=== PATIENT | male | born 1970 | race African-American/Black ===

== ENCOUNTER 2018-04-15 18:58 | Emergency (ER) | payer SELFPAY ==
[~2018-04-15] VITALS: Ht 185.4 cm; Wt 123.0 kg
[2018-04-16 00:43] VITALS: BP 142/89
== END 2018-04-16 00:51 | disposition home or self-care (01) ==
LOC: ER 23:43
DX: T16.2XXA Foreign body in left ear, initial encounter (principal); X58.XXXA Exposure to other specified factors, initial encounter; Y93.89 Activity, other specified; Y92.89 Other specified places as the place of occurrence of the external cause; Y99.8 Other external cause status
CPT/HCPCS: 69200; 99284

== ENCOUNTER 2020-09-17 14:04 | Inpatient (IN) | payer SELFPAY ==
[~2020-09-17] VITALS: Ht 182.9 cm; Wt 166.9 kg
[2020-09-17] MEDS ORDERED: ASPIRIN 325MG EC TABLET PO ONE (14:45)
[2020-09-17] MEDS ORDERED: HYDROCODONE/ACETAMINOPHEN 5/325MG TABLET PO ONE (14:45)
[2020-09-17] MEDS ORDERED: FUROSEMIDE 40MG/4ML VIAL IV ONE (14:45)
[2020-09-17 15:13] LABS: CHLORIDE 99 mEq/L (98-107)
[2020-09-17 15:16] LABS: BASOPHILS % 0.8 % (0.0-2.0); HEMATOCRIT. 44.6 % (42.0-52.0); HEMOGLOBIN. 14.7 g/dL (14.0-18.0); LYMPHOCYTES % 13.3 % (20.0-50.0); MEAN CORPUSCULAR VOLUME 93.7 fL (80.0-94.0); MEAN PLATELET VOLUME 11.1 fl (7.4-10.4); MONOCYTES % 8.5 % (2.0-8.0); NEUTROPHILS % 76.4 % (40.0-76.0); PLATELET 161 x1000/uL (130-400); RED BLOOD CELL COUNT 4.76 mill/uL (4.7-6.1); RED CELL DISTRIBUTION WIDTH 14.9 % (11.6-14.6)
[2020-09-17 15:18] LABS: D-DIMER 1.71 mg/L FEU (<0.50); INR 1.2; PARTIAL THROMBOPLASTIN TIME 26.2 sec (23.4-31.0); PROTHROMBIN TIME 12.6 sec (9.6-11.0)
[2020-09-17] MEDS ORDERED: INSULIN REGULAR (HUMULIN R) 300UNITS/3ML VIAL IV ONE ×2 (16:30→18:30)
[2020-09-17 17:07] LABS: CLARITY URINE CLEAR (CLEAR); COLOR URINE YELLOW (YELLOW); KETONES URINE NEGATIVE (NEGATIVE); LEUKOCYTE ESTERASE URINE NEGATIVE (NEGATIVE); NITRITE URINE NEGATIVE (NEGATIVE); OCCULT BLOOD URINE NEGATIVE (NEGATIVE); PROTEIN URINE NEGATIVE (NEGATIVE); SPECIFIC GRAVITY URINE 1.018 (1.005-1.030); UROBILINOGEN URINE 0.2 E.U./dL (0.2-1.0)
[2020-09-17 17:19] LABS: *AMPHETAMINES SCREEN URINE NEGATIVE (NEGATIVE); *BARBITURATES SCREEN URINE NEGATIVE (NEGATIVE); *COCAINE SCREEN URINE NEGATIVE (NEGATIVE); METHADONE URINE SCREEN NEGATIVE (NEGATIVE); OPIATES URINE SCREEN NEGATIVE (NEGATIVE)
[2020-09-17 17:20] LABS: *BENZODIAZEPINES SCREEN URINE NEGATIVE (NEGATIVE); PHENCYCLIDINE URINE SCREEN NEGATIVE (NEGATIVE)
[2020-09-17 17:22] LABS: CANNABINOID URINE SCREEN NEGATIVE (NEGATIVE)
[2020-09-17] MEDS ORDERED: DOCUSATE SODIUM 100MG CAPSULE PO PRN (19:15)
[2020-09-17] MEDS ORDERED: DEXTROSE 50% WATER 50ML SYRINGE IV PRN (19:15)
[2020-09-17] MEDS ORDERED: ONDANSETRON HCL 4MG/2ML INJ IV PRN (19:15)
[2020-09-17] MEDS ORDERED: GUAIFENESIN 200MG/10ML SUGAR FREE UDC PO PRN (19:15)
[2020-09-17] MEDS ORDERED: MAGNESIUM/ALUMINUM HYDROXIDE/SIMETHICONE 30ML UDC PO PRN (19:15)
[2020-09-17] MEDS ORDERED: TRAMADOL 50MG TABLET PO PRN (19:15)
[2020-09-17] MEDS ORDERED: IPRATROPIUM/ALBUTEROL 0.5-3(2.5)MG/3ML NEB NEB PRN (19:15)
[2020-09-17] MEDS ORDERED: ACETAMINOPHEN 325MG TABLET PO PRN ×2 (19:15)
[2020-09-17] MEDS ORDERED: NITROGLYCERIN 0.4MG TABLET SL SL PRN (19:15)
[2020-09-17] MEDS ORDERED: CLONIDINE 0.1MG TABLET PO PRN (19:15)
[2020-09-17] MEDS ORDERED: KETOROLAC 15MG/ML VIAL IV PRN (19:15)
[2020-09-17 19:58] LABS: ETHANOL BLOOD < 10 mg/dL
[2020-09-17 19:59] LABS: TOTAL IRON BINDING CAPACITY 291 ug/dL (250-450)
[2020-09-17 20:39] LABS: VITAMIN B12 SERUM 1618 pg/mL (211-911)
[2020-09-17 20:43] LABS: FOLIC ACID (FOLATE) SERUM > 20.00 ng/mL (>5.38)
[2020-09-17] MEDS ORDERED: ZOLPIDEM TARTRATE 5MG TABLET PO PRN (21:00)
[2020-09-17] MEDS: FAMOTIDINE 20MG TABLET PO SCH (21:16)
[2020-09-17] MEDS: FUROSEMIDE 40MG/4ML VIAL IVP SCH (21:16)
[2020-09-17] MEDS: SPIRONOLACTONE 25MG TABLET PO SCH (21:17)
[2020-09-17] MEDS: ASCORBIC ACID 500 MG TABLET PO SCH (21:17)
[2020-09-17] MEDS: INSULIN LISPRO 100 UNITS/ML SUBCUT SCH (21:21)
[2020-09-17] MEDS: ENOXAPARIN 30MG/0.3ML SYR SUBCUT SCH (21:32)
[2020-09-17] MEDS: BLOOD SUGAR DIAGNOSTIC STRIP TEST SCH (21:37)
[2020-09-17] MEDS ORDERED: INSULIN GLARGINE UD 100 UNITS/ML SYR SUBCUT SCH (22:00)
[2020-09-17 22:45] VITALS: BP 137/95
[2020-09-17 23:00] VITALS: BP 137/95
[2020-09-17] MEDS: METHOCARBAMOL 750MG TABLET PO SCH (23:41)
[2020-09-18] VITALS (12 sets, daily range): BP systolic 110–148; BP diastolic 50–99
[2020-09-18] MEDS: CARVEDILOL 3.125 MG TABLET PO SCH ×2 (05:46→17:44)
[2020-09-18] MEDS: METHOCARBAMOL 750MG TABLET PO SCH ×3 (05:46→22:00)
[2020-09-18] MEDS: INSULIN LISPRO 100 UNITS/ML SUBCUT SCH ×7 (06:03→21:00)
[2020-09-18] MEDS: BLOOD SUGAR DIAGNOSTIC STRIP TEST SCH ×4 (06:08→21:00)
[2020-09-18 06:30] LABS: BASOPHILS % 0.8 % (0.0-2.0); EOSINOPHILS % 3.2 % (0.0-5.0); HEMATOCRIT. 41.9 % (42.0-52.0); HEMOGLOBIN. 14.2 g/dL (14.0-18.0); LYMPHOCYTES % 21.1 % (20.0-50.0); MEAN CORPUSCULAR HEMOGLOBIN 30.9 pg (28.0-32.0); MEAN CORPUSCULAR VOLUME 91.5 fL (80.0-94.0); MEAN PLATELET VOLUME 10.2 fl (7.4-10.4); NEUTROPHILS % 65.9 % (40.0-76.0); PLATELET 147 x1000/uL (130-400); RED BLOOD CELL COUNT 4.59 mill/uL (4.7-6.1); RED CELL DISTRIBUTION WIDTH 14.6 % (11.6-14.6)
[2020-09-18 06:45] LABS: CHLORIDE 104 mEq/L (98-107)
[2020-09-18 06:53] LABS: PHOSPHORUS 3.9 mg/dL (2.5-4.9)
[2020-09-18 06:56] LABS: CREATINE KINASE 297 IU/L (39-308)
[2020-09-18 06:58] LABS: CREATINE KINASE MB FRACTION 4.6 ng/mL (0.5-3.6)
[2020-09-18] MEDS: ASPIRIN 325MG EC TABLET PO SCH (09:01)
[2020-09-18] MEDS: FUROSEMIDE 40MG/4ML VIAL IVP SCH ×2 (09:01→22:00)
[2020-09-18] MEDS: CHOLECALCIFEROL (D3) 1000 UNIT TABLET PO SCH (09:01)
[2020-09-18] MEDS: ASCORBIC ACID 500 MG TABLET PO SCH ×2 (09:02→22:00)
[2020-09-18] MEDS: FAMOTIDINE 20MG TABLET PO SCH ×2 (09:02→22:00)
[2020-09-18] MEDS: SPIRONOLACTONE 25MG TABLET PO SCH ×2 (09:02→22:02)
[2020-09-18] MEDS: ENOXAPARIN 30MG/0.3ML SYR SUBCUT SCH (09:02)
[2020-09-18] MEDS: INSULIN GLARGINE UD 100 UNITS/ML SYR SUBCUT SCH (22:00)
[2020-09-18] MEDS: ENOXAPARIN 40MG/0.4ML SYR SUBCUT SCH (22:03)
[2020-09-19] VITALS (12 sets, daily range): BP systolic 107–148; BP diastolic 48–100
[2020-09-19] MEDS: INSULIN LISPRO 100 UNITS/ML SUBCUT SCH ×7 (06:41→21:11)
[2020-09-19] MEDS: METHOCARBAMOL 750MG TABLET PO SCH ×3 (06:48→21:14)
[2020-09-19] MEDS: BLOOD SUGAR DIAGNOSTIC STRIP TEST SCH ×4 (06:48→21:03)
[2020-09-19] MEDS: SPIRONOLACTONE 25MG TABLET PO SCH ×2 (08:19→21:14)
[2020-09-19] MEDS: CHOLECALCIFEROL (D3) 1000 UNIT TABLET PO SCH (08:19)
[2020-09-19] MEDS: FAMOTIDINE 20MG TABLET PO SCH ×2 (08:19→21:13)
[2020-09-19] MEDS: ASPIRIN 325MG EC TABLET PO SCH (08:19)
[2020-09-19] MEDS: ASCORBIC ACID 500 MG TABLET PO SCH ×2 (08:19→21:14)
[2020-09-19] MEDS: FUROSEMIDE 40MG/4ML VIAL IVP SCH ×2 (08:20→21:12)
[2020-09-19] MEDS: ENOXAPARIN 40MG/0.4ML SYR SUBCUT SCH ×2 (08:20→21:12)
[2020-09-19] MEDS ORDERED: CARVEDILOL 3.125 MG TABLET PO SCH (09:00)
[2020-09-19] MEDS: LISINOPRIL 20MG TABLET PO SCH (11:04)
[2020-09-19] MEDS ORDERED: FUROSEMIDE 40MG/4ML VIAL IVP NR (12:30)
[2020-09-19 13:52] LABS: CHLORIDE 103 mEq/L (98-107)
[2020-09-19] MEDS: INSULIN GLARGINE UD 100 UNITS/ML SYR SUBCUT SCH (21:11)
[2020-09-19] MEDS: CARVEDILOL 6.25 MG TABLET PO SCH (21:14)
[2020-09-20] VITALS (8 sets, daily range): BP systolic 91–147; BP diastolic 54–97
[2020-09-20] MEDS: METHOCARBAMOL 750MG TABLET PO SCH ×2 (05:39→07:54)
[2020-09-20] MEDS: INSULIN LISPRO 100 UNITS/ML SUBCUT SCH ×4 (05:59→11:42)
[2020-09-20] MEDS: BLOOD SUGAR DIAGNOSTIC STRIP TEST SCH ×2 (05:59→11:23)
[2020-09-20] MEDS: CHOLECALCIFEROL (D3) 1000 UNIT TABLET PO SCH (07:54)
[2020-09-20] MEDS: ASCORBIC ACID 500 MG TABLET PO SCH (07:54)
[2020-09-20] MEDS: ENOXAPARIN 40MG/0.4ML SYR SUBCUT SCH (07:55)
[2020-09-20] MEDS: LISINOPRIL 20MG TABLET PO SCH (07:55)
[2020-09-20] MEDS: FAMOTIDINE 20MG TABLET PO SCH (07:56)
[2020-09-20] MEDS: CARVEDILOL 6.25 MG TABLET PO SCH (07:58)
[2020-09-20] MEDS: SPIRONOLACTONE 25MG TABLET PO SCH (07:59)
[2020-09-20] MEDS: FUROSEMIDE 40MG/4ML VIAL IVP SCH (08:05)
[2020-09-20] MEDS ORDERED: ASPIRIN 81MG EC TABLET PO SCH (09:00)
[2020-09-20 10:22] LABS: CHLORIDE 102 mEq/L (98-107)
[2020-09-20] MEDS ORDERED: POTASSIUM CHLORIDE 20MEQ TABLET SR PO NR (10:45)
== END 2020-09-20 15:18 | disposition home or self-care (01) | DRG 194 ==
LOC: ER 14:04 → 3WST 18:41 → ENRESERV 21:49 → 3WST 09-19 10:29
PROVIDERS: ADMIT Internal Medicine; ATTEND Internal Medicine
DX: I11.0 Hypertensive heart disease with heart failure (principal); E43 Unspecified severe protein-calorie malnutrition; I42.9 Cardiomyopathy, unspecified; E11.65 Type 2 diabetes mellitus with hyperglycemia; E66.01 Morbid (severe) obesity due to excess calories; E83.51 Hypocalcemia; E87.1 Hypo-osmolality and hyponatremia; F17.210 Nicotine dependence, cigarettes, uncomplicated; I47.1 Supraventricular tachycardia; Z96.652 Presence of left artificial knee joint; G89.29 Other chronic pain; M54.9 Dorsalgia, unspecified; I25.10 Atherosclerotic heart disease of native coronary artery without angina pectoris; I50.9 Heart failure, unspecified; E78.5 Hyperlipidemia, unspecified; Z60.2 Problems related to living alone; E83.42 Hypomagnesemia; E87.6 Hypokalemia; I25.2 Old myocardial infarction; Z82.49 Family history of ischemic heart disease and other diseases of the circulatory system; Z83.3 Family history of diabetes mellitus; Z88.0 Allergy status to penicillin; Z86.73 Personal history of transient ischemic attack (TIA), and cerebral infarction without residual deficits; Z68.42 Body mass index [BMI] 45.0-49.9, adult
CPT/HCPCS: 36415; 71045; 80048; 80053; 80061; 80305; 80320; 81003; 82550; 82553; 82607; 82746; 82962; 83036; 83540; 83550; 83735; 83880; 84100; 84484; 85025; 85379; 93005; 93306; 93970; 99285; J1650; J1815; J1940; G0480

== ENCOUNTER 2020-10-01 03:10 | Inpatient (IN) | payer MEDICAID, OTHER ==
[~2020-10-01] VITALS: Ht 182.9 cm; Wt 144.7 kg
[2020-10-01] MEDS ORDERED: KETOROLAC 30MG/ML VIAL IV STA (03:36)
[2020-10-01] MEDS ORDERED: FUROSEMIDE 100MG/10ML VIAL IVP ONE (03:45)
[2020-10-01 04:08] LABS: BASOPHILS % 1.1 % (0.0-2.0); EOSINOPHILS % 1.5 % (0.0-5.0); HEMATOCRIT. 46.6 % (42.0-52.0); HEMOGLOBIN. 15.1 g/dL (14.0-18.0); LYMPHOCYTES % 21.9 % (20.0-50.0); MEAN CORPUSCULAR VOLUME 92.5 fL (80.0-94.0); MEAN PLATELET VOLUME 10.3 fl (7.4-10.4); MONOCYTES % 8.1 % (2.0-8.0); NEUTROPHILS % 67.4 % (40.0-76.0); PLATELET 211 x1000/uL (130-400); RED BLOOD CELL COUNT 5.04 mill/uL (4.7-6.1); RED CELL DISTRIBUTION WIDTH 14.9 % (11.6-14.6)
[2020-10-01 04:15] LABS: CHLORIDE 107 mEq/L (98-107)
[2020-10-01] MEDS ORDERED: HYDROCODONE/ACETAMINOPHEN 5/325MG TABLET PO STA (04:58)
[2020-10-01] MEDS ORDERED: MORPHINE SULFATE 4 MG/ML CPJ (NOT FOR IM USE) IV STA (06:04)
[2020-10-01 06:50] LABS: CLARITY URINE CLEAR (CLEAR); COLOR URINE YELLOW (YELLOW); KETONES URINE NEGATIVE (NEGATIVE); LEUKOCYTE ESTERASE URINE NEGATIVE (NEGATIVE); NITRITE URINE NEGATIVE (NEGATIVE); OCCULT BLOOD URINE NEGATIVE (NEGATIVE); PH URINE 5.5 (4.5-8.0); PROTEIN URINE 1+ (NEGATIVE); SPECIFIC GRAVITY URINE 1.011 (1.005-1.030)
[2020-10-01] MEDS: VANCOMYCIN 1 G PREMIX 200 ML IV SCH ×3 (07:03→21:10)
[2020-10-01 09:00] VITALS: BP 131/87
[2020-10-01] MEDS ORDERED: ONDANSETRON HCL 4MG/2ML INJ IV PRN (09:30)
[2020-10-01] MEDS ORDERED: DEXTROSE 50% WATER 50ML SYRINGE IV PRN (09:30)
[2020-10-01] MEDS ORDERED: KETOROLAC 30MG/ML VIAL IV PRN (09:30)
[2020-10-01 09:51] VITALS: BP 131/87
[2020-10-01] MEDS: ENOXAPARIN 30MG/0.3ML SYR SUBCUT SCH ×2 (10:31→21:10)
[2020-10-01] MEDS: CARVEDILOL 3.125 MG TABLET PO SCH ×2 (10:32→21:11)
[2020-10-01] MEDS: SPIRONOLACTONE 25MG TABLET PO SCH (10:33)
[2020-10-01 12:00] VITALS: BP 138/89
[2020-10-01] MEDS: HYDROCODONE/ACETAMINOPHEN 5/325MG TABLET PO NR ×2 (12:17→12:32)
[2020-10-01] MEDS: INSULIN LISPRO 100 UNITS/ML SUBCUT SCH ×3 (12:18→21:11)
[2020-10-01] MEDS: BLOOD SUGAR DIAGNOSTIC STRIP TEST SCH ×3 (12:18→21:12)
[2020-10-01 16:00] VITALS: BP 120/90
[2020-10-01] MEDS ORDERED: METOLAZONE 2.5MG TABLET PO NR (16:00)
[2020-10-01] MEDS ORDERED: INSULIN GLARGINE UD 100 UNITS/ML SYR SUBCUT NR (16:30)
[2020-10-01] MEDS ORDERED: FUROSEMIDE 40MG/4ML VIAL IVP SCH (17:00)
[2020-10-01] MEDS: FUROSEMIDE 40MG/4ML VIAL IVP SCH (17:35)
[2020-10-01] MEDS: HYDROCODONE/ACETAMINOPHEN 5/325MG TABLET PO PRN (17:39)
[2020-10-01 20:00] VITALS: BP 133/95
[2020-10-01] MEDS: INSULIN GLARGINE UD 100 UNITS/ML SYR SUBCUT SCH (21:12)
[2020-10-02] VITALS: BP 143/88
[2020-10-02 04:00] VITALS: BP 126/96
[2020-10-02] MEDS: HYDROCODONE/ACETAMINOPHEN 5/325MG TABLET PO PRN ×3 (04:22→19:09)
[2020-10-02] MEDS: FUROSEMIDE 40MG/4ML VIAL IVP SCH ×2 (05:10→17:12)
[2020-10-02] MEDS: BLOOD SUGAR DIAGNOSTIC STRIP TEST SCH ×4 (06:42→21:33)
[2020-10-02] MEDS: INSULIN LISPRO 100 UNITS/ML SUBCUT SCH ×4 (06:43→21:00)
[2020-10-02 07:10] LABS: CHLORIDE 102 mEq/L (98-107)
[2020-10-02 07:15] LABS: BASOPHILS % 0.7 % (0.0-2.0); EOSINOPHILS % 1.6 % (0.0-5.0); HEMATOCRIT. 43.4 % (42.0-52.0); HEMOGLOBIN. 14.8 g/dL (14.0-18.0); LYMPHOCYTES % 19.7 % (20.0-50.0); MEAN CORPUSCULAR HEMOGLOBIN 31.1 pg (28.0-32.0); MEAN CORPUSCULAR VOLUME 91.3 fL (80.0-94.0); MEAN PLATELET VOLUME 10.2 fl (7.4-10.4); MONOCYTES % 8.7 % (2.0-8.0); NEUTROPHILS % 69.3 % (40.0-76.0); PLATELET 180 x1000/uL (130-400); RED BLOOD CELL COUNT 4.75 mill/uL (4.7-6.1); RED CELL DISTRIBUTION WIDTH 14.9 % (11.6-14.6)
[2020-10-02 08:00] VITALS: BP 117/86
[2020-10-02] MEDS: CARVEDILOL 3.125 MG TABLET PO SCH (09:37)
[2020-10-02] MEDS: VANCOMYCIN 1 G PREMIX 200 ML IV SCH ×2 (09:37→21:35)
[2020-10-02] MEDS: SPIRONOLACTONE 25MG TABLET PO SCH (09:37)
[2020-10-02] MEDS: LOSARTAN POTASSIUM 25 MG TABLET PO SCH (09:38)
[2020-10-02] MEDS: INSULIN GLARGINE UD 100 UNITS/ML SYR SUBCUT SCH ×2 (09:44→21:34)
[2020-10-02] MEDS ORDERED: POTASSIUM CHLORIDE 10MEQ TABLET SR PO NR (10:30)
[2020-10-02] MEDS: ENOXAPARIN 30MG/0.3ML SYR SUBCUT SCH (10:41)
[2020-10-02 12:00] VITALS: BP 111/89
[2020-10-02 16:00] VITALS: BP 117/68
[2020-10-02] MEDS ORDERED: MAGNESIUM 2 G PREMIX 50 ML IV NR (16:00)
[2020-10-02] MEDS: ACETAMINOPHEN 325MG TABLET PO PRN (18:25)
[2020-10-02 20:00] VITALS: BP 133/73
[2020-10-02] MEDS: ENOXAPARIN 40MG/0.4ML SYR SUBCUT SCH (21:35)
[2020-10-02] MEDS: CARVEDILOL 6.25 MG TABLET PO SCH (21:36)
[2020-10-03] VITALS: BP 95/69
[2020-10-03] MEDS: HYDROCODONE/ACETAMINOPHEN 5/325MG TABLET PO PRN ×2 (03:00→18:13)
[2020-10-03 04:00] VITALS: BP 101/65
[2020-10-03] MEDS: BLOOD SUGAR DIAGNOSTIC STRIP TEST SCH ×4 (05:58→21:48)
[2020-10-03] MEDS: FUROSEMIDE 40MG/4ML VIAL IVP SCH ×2 (06:03→17:53)
[2020-10-03] MEDS: INSULIN LISPRO 100 UNITS/ML SUBCUT SCH ×4 (06:21→21:47)
[2020-10-03] MEDS: ACETAMINOPHEN 325MG TABLET PO PRN ×2 (06:36→16:41)
[2020-10-03 08:00] VITALS: BP 128/88
[2020-10-03] MEDS: VANCOMYCIN 1 G PREMIX 200 ML IV SCH ×3 (08:39→21:26)
[2020-10-03] MEDS: ENOXAPARIN 40MG/0.4ML SYR SUBCUT SCH ×2 (08:39→21:27)
[2020-10-03] MEDS: LOSARTAN POTASSIUM 25 MG TABLET PO SCH (08:39)
[2020-10-03] MEDS: CARVEDILOL 6.25 MG TABLET PO SCH ×2 (08:39→21:27)
[2020-10-03] MEDS: SPIRONOLACTONE 25MG TABLET PO SCH (08:39)
[2020-10-03] MEDS: INSULIN GLARGINE UD 100 UNITS/ML SYR SUBCUT SCH ×2 (10:15→21:47)
[2020-10-03] MEDS ORDERED: METOLAZONE 2.5MG TABLET PO SCH (11:45)
[2020-10-03 12:00] VITALS: BP 116/75
[2020-10-03 16:00] VITALS: BP 104/75
[2020-10-03 20:00] VITALS: BP 106/73
[2020-10-04] VITALS (7 sets, daily range): BP systolic 94–129; BP diastolic 52–84
[2020-10-04] MEDS: HYDROCODONE/ACETAMINOPHEN 5/325MG TABLET PO PRN ×3 (00:32→16:13)
[2020-10-04 06:28] LABS: CHLORIDE 97 mEq/L (98-107)
[2020-10-04] MEDS: INSULIN LISPRO 100 UNITS/ML SUBCUT SCH ×4 (06:42→21:25)
[2020-10-04] MEDS: FUROSEMIDE 40MG/4ML VIAL IVP SCH ×2 (06:42→19:13)
[2020-10-04] MEDS: BLOOD SUGAR DIAGNOSTIC STRIP TEST SCH ×4 (06:42→21:10)
[2020-10-04] MEDS ORDERED: POTASSIUM CHLORIDE 20MEQ TABLET SR PO NR (09:49)
[2020-10-04] MEDS: LOSARTAN POTASSIUM 25 MG TABLET PO SCH (10:08)
[2020-10-04] MEDS: CARVEDILOL 6.25 MG TABLET PO SCH ×2 (10:08→21:00)
[2020-10-04] MEDS: VANCOMYCIN 1 G PREMIX 200 ML IV SCH ×2 (10:09→21:22)
[2020-10-04] MEDS: ENOXAPARIN 40MG/0.4ML SYR SUBCUT SCH ×2 (10:09→21:26)
[2020-10-04] MEDS: INSULIN GLARGINE UD 100 UNITS/ML SYR SUBCUT SCH ×2 (10:23→21:25)
[2020-10-04] MEDS: SPIRONOLACTONE 50MG TABLET PO SCH (12:09)
[2020-10-04] MEDS: ACETAMINOPHEN 325MG TABLET PO PRN ×2 (13:54→21:22)
[2020-10-04] MEDS: POTASSIUM CHLORIDE 20MEQ TABLET SR PO SCH (16:12)
[2020-10-05] VITALS: BP 109/72
[2020-10-05] MEDS: HYDROCODONE/ACETAMINOPHEN 5/325MG TABLET PO PRN (02:13)
[2020-10-05 04:00] VITALS: BP 117/68
[2020-10-05] MEDS: FUROSEMIDE 40MG/4ML VIAL IVP SCH ×2 (05:43→20:51)
[2020-10-05] MEDS: INSULIN LISPRO 100 UNITS/ML SUBCUT SCH ×4 (06:58→20:52)
[2020-10-05] MEDS: BLOOD SUGAR DIAGNOSTIC STRIP TEST SCH ×4 (06:58→20:52)
[2020-10-05 07:12] LABS: CHLORIDE 97 mEq/L (98-107)
[2020-10-05 08:00] VITALS: BP 101/64
[2020-10-05] MEDS: POTASSIUM CHLORIDE 20MEQ TABLET SR PO SCH ×2 (08:13→17:22)
[2020-10-05] MEDS: LOSARTAN POTASSIUM 25 MG TABLET PO SCH (08:17)
[2020-10-05] MEDS: SPIRONOLACTONE 50MG TABLET PO SCH (08:18)
[2020-10-05] MEDS: CARVEDILOL 6.25 MG TABLET PO SCH ×2 (08:18→21:00)
[2020-10-05] MEDS: VANCOMYCIN 1 G PREMIX 200 ML IV SCH (08:19)
[2020-10-05] MEDS: ENOXAPARIN 40MG/0.4ML SYR SUBCUT SCH ×2 (08:19→21:38)
[2020-10-05] MEDS: ACETAMINOPHEN 325MG TABLET PO PRN (08:36)
[2020-10-05] MEDS ORDERED: POTASSIUM CHLORIDE INJ 40 MEQ in DEXT 5% WATER 250 ML IV SCH (11:00)
[2020-10-05] MEDS: INSULIN GLARGINE UD 100 UNITS/ML SYR SUBCUT SCH ×2 (11:18→20:52)
[2020-10-05 12:00] VITALS: BP_SYST 100; BP_SYST 111; BP_DIAS 55; BP_DIAS 62
[2020-10-05 16:00] VITALS: BP 110/71
[2020-10-05 19:33] LABS: CHLORIDE 96 mEq/L (98-107)
[2020-10-05 20:00] VITALS: BP 117/76
[2020-10-06] VITALS: BP 117/84
[2020-10-06] MEDS: VANCOMYCIN 1250MG in DEXTROSE 5% WATER 250ML IV SCH ×2 (00:18→17:24)
[2020-10-06 04:00] VITALS: BP 119/72
[2020-10-06] MEDS: BLOOD SUGAR DIAGNOSTIC STRIP TEST SCH ×4 (06:56→21:53)
[2020-10-06] MEDS: INSULIN LISPRO 100 UNITS/ML SUBCUT SCH ×4 (06:56→21:54)
[2020-10-06] MEDS: FUROSEMIDE 40MG/4ML VIAL IVP SCH ×2 (06:56→17:24)
[2020-10-06 07:59] LABS: CHLORIDE 97 mEq/L (98-107)
[2020-10-06 08:00] VITALS: BP 122/83
[2020-10-06] MEDS: SPIRONOLACTONE 50MG TABLET PO SCH (08:32)
[2020-10-06] MEDS: ENOXAPARIN 40MG/0.4ML SYR SUBCUT SCH ×2 (08:32→21:53)
[2020-10-06] MEDS: LOSARTAN POTASSIUM 25 MG TABLET PO SCH (08:33)
[2020-10-06] MEDS: CARVEDILOL 6.25 MG TABLET PO SCH ×2 (08:33→21:54)
[2020-10-06] MEDS: POTASSIUM CHLORIDE 20MEQ TABLET SR PO SCH ×2 (08:33→16:19)
[2020-10-06] MEDS: INSULIN GLARGINE UD 100 UNITS/ML SYR SUBCUT SCH ×2 (10:55→21:56)
[2020-10-06] MEDS ORDERED: METOLAZONE 2.5MG TABLET PO NR (11:45)
[2020-10-06 12:00] VITALS: BP 108/85
[2020-10-06 16:00] VITALS: BP 96/58
[2020-10-06 19:04] LABS: CHLORIDE 98 mEq/L (98-107)
[2020-10-06 20:00] VITALS: BP 124/56
[2020-10-07] VITALS (7 sets, daily range): BP systolic 87–133; BP diastolic 58–89
[2020-10-07] MEDS: FUROSEMIDE 40MG/4ML VIAL IVP SCH ×2 (06:28→17:12)
[2020-10-07] MEDS: BLOOD SUGAR DIAGNOSTIC STRIP TEST SCH ×4 (06:28→21:29)
[2020-10-07] MEDS: INSULIN LISPRO 100 UNITS/ML SUBCUT SCH ×4 (06:29→21:32)
[2020-10-07 08:06] LABS: CHLORIDE 97 mEq/L (98-107)
[2020-10-07] MEDS: LOSARTAN POTASSIUM 25 MG TABLET PO SCH (09:00)
[2020-10-07] MEDS: CARVEDILOL 6.25 MG TABLET PO SCH ×2 (09:00→21:30)
[2020-10-07] MEDS: SPIRONOLACTONE 50MG TABLET PO SCH (09:00)
[2020-10-07] MEDS: POTASSIUM CHLORIDE 20MEQ TABLET SR PO SCH ×2 (09:05→17:12)
[2020-10-07] MEDS: INSULIN GLARGINE UD 100 UNITS/ML SYR SUBCUT SCH ×2 (09:05→21:32)
[2020-10-07] MEDS: ENOXAPARIN 40MG/0.4ML SYR SUBCUT SCH ×2 (09:05→21:31)
[2020-10-07] MEDS: VANCOMYCIN 1250MG in DEXTROSE 5% WATER 250ML IV SCH (11:36)
[2020-10-07 21:40] LABS: CHLORIDE 95 mEq/L (98-107)
[2020-10-08] VITALS: BP 89/61
[2020-10-08 04:00] VITALS: BP 107/63
[2020-10-08] MEDS: FUROSEMIDE 40MG/4ML VIAL IVP SCH ×2 (06:15→17:17)
[2020-10-08] MEDS: BLOOD SUGAR DIAGNOSTIC STRIP TEST SCH ×4 (06:15→21:00)
[2020-10-08] MEDS: INSULIN LISPRO 100 UNITS/ML SUBCUT SCH ×4 (06:15→22:26)
[2020-10-08] MEDS: VANCOMYCIN 1250MG in DEXTROSE 5% WATER 250ML IV SCH (06:15)
[2020-10-08 07:26] LABS: CHLORIDE 98 mEq/L (98-107)
[2020-10-08 08:00] VITALS: BP 126/81
[2020-10-08] MEDS: ENOXAPARIN 40MG/0.4ML SYR SUBCUT SCH ×2 (09:00→21:00)
[2020-10-08] MEDS: INSULIN GLARGINE UD 100 UNITS/ML SYR SUBCUT SCH ×2 (10:00→22:00)
[2020-10-08] MEDS: POTASSIUM CHLORIDE 20MEQ TABLET SR PO SCH (10:03)
[2020-10-08] MEDS: LOSARTAN POTASSIUM 25 MG TABLET PO SCH (10:03)
[2020-10-08] MEDS: CARVEDILOL 6.25 MG TABLET PO SCH (10:03)
[2020-10-08] MEDS: SPIRONOLACTONE 50MG TABLET PO SCH (10:04)
[2020-10-08] MEDS ORDERED: METOLAZONE 2.5MG TABLET PO NR (11:30)
[2020-10-08 12:00] VITALS: BP 103/70
[2020-10-08 16:00] VITALS: BP 136/72
[2020-10-08 17:49] LABS: CHLORIDE 97 mEq/L (98-107)
[2020-10-08 20:00] VITALS: BP 113/74
[2020-10-09] VITALS: BP 113/77
[2020-10-09] MEDS: VANCOMYCIN 1250MG in DEXTROSE 5% WATER 250ML IV SCH ×2 (00:09→20:13)
[2020-10-09] MEDS: ACETAMINOPHEN 325MG TABLET PO PRN (00:12)
[2020-10-09] MEDS: CARVEDILOL 6.25 MG TABLET PO SCH ×3 (00:12→20:12)
[2020-10-09 04:00] VITALS: BP 100/67
[2020-10-09] MEDS: BLOOD SUGAR DIAGNOSTIC STRIP TEST SCH ×4 (05:55→21:02)
[2020-10-09] MEDS: INSULIN LISPRO 100 UNITS/ML SUBCUT SCH ×4 (05:56→21:10)
[2020-10-09] MEDS: FUROSEMIDE 40MG/4ML VIAL IVP SCH ×2 (06:00→20:11)
[2020-10-09] MEDS ORDERED: NITROGLYCERIN 50MCG/ML 10ML VIAL (CATH LAB) IV ONE (07:55)
[2020-10-09] MEDS ORDERED: NICARDIPINE 100MCG/ML 10ML VIAL (CATH LAB) IV ONE (07:55)
[2020-10-09] MEDS ORDERED: PHENYLEPHRINE 100MCG/ML 10ML VIAL (CATH LAB) IV ONE (07:55)
[2020-10-09] MEDS ORDERED: HEPARIN SODIUM 1,000 UNIT/1ML VIAL IV ONE (07:55)
[2020-10-09 08:00] VITALS: BP 108/74
[2020-10-09] MEDS ORDERED: VERAPAMIL HCL 2.5 MG/1 ML 2ML VIAL IV ONE (08:17)
[2020-10-09] MEDS ORDERED: IODIXANOL 320MG/ML 100 ML BOTTLE IV ONE (08:18)
[2020-10-09] MEDS ORDERED: LIDOCAINE HCL 1% 20ML VIAL (Pyxis) INJ ONE (08:18)
[2020-10-09] MEDS ORDERED: MIDAZOLAM HCL 2 MG/2 ML VIAL ONE (08:46)
[2020-10-09] MEDS ORDERED: FENTANYL CITRATE/PF 50MCG/ML 2ML VIAL ONE (08:46)
[2020-10-09] MEDS: SPIRONOLACTONE 50MG TABLET PO SCH (08:49)
[2020-10-09] MEDS: ENOXAPARIN 40MG/0.4ML SYR SUBCUT SCH ×2 (08:50→21:03)
[2020-10-09] MEDS: POTASSIUM CHLORIDE 20MEQ TABLET SR PO SCH (08:50)
[2020-10-09] MEDS: LOSARTAN POTASSIUM 25 MG TABLET PO SCH (08:50)
[2020-10-09] MEDS: INSULIN GLARGINE UD 100 UNITS/ML SYR SUBCUT SCH ×2 (10:00→21:11)
[2020-10-09] MEDS ORDERED: ATROPINE SULFATE 1MG/10ML SYR IV PRN (10:15)
[2020-10-09 16:00] VITALS: BP 110/78
[2020-10-09 16:07] LABS: CHLORIDE 97 mEq/L (98-107)
[2020-10-09] MEDS ORDERED: POTA20TA82 PO (16:31)
[2020-10-09] MEDS ORDERED: COR6 PO (16:31)
[2020-10-09] MEDS ORDERED: LANTUSUD SUBCUT (16:31)
[2020-10-09] MEDS ORDERED: LOSA25TA3 PO (16:31)
[2020-10-09] MEDS ORDERED: ALD50 PO (16:31)
[2020-10-09] MEDS ORDERED: FURO80TA87 MT (16:31)
[2020-10-09] MEDS ORDERED: METF-416 MT (16:31)
[2020-10-09 20:00] VITALS: BP 128/81
[2020-10-09 20:15] LABS: CHLORIDE 97 mEq/L (98-107)
[2020-10-10] VITALS: BP 108/70
[2020-10-10 04:00] VITALS: BP 105/65
[2020-10-10 06:19] LABS: BASOPHILS % 1.2 % (0.0-2.0); EOSINOPHILS % 4.4 % (0.0-5.0); HEMATOCRIT. 39.9 % (42.0-52.0); HEMOGLOBIN. 13.5 g/dL (14.0-18.0); LYMPHOCYTES % 21.7 % (20.0-50.0); MEAN CORPUSCULAR HEMOGLOBIN 30.8 pg (28.0-32.0); MEAN CORPUSCULAR VOLUME 91.3 fL (80.0-94.0); MEAN PLATELET VOLUME 10.4 fl (7.4-10.4); MONOCYTES % 14.8 % (2.0-8.0); NEUTROPHILS % 57.9 % (40.0-76.0); PLATELET 156 x1000/uL (130-400); RED BLOOD CELL COUNT 4.37 mill/uL (4.7-6.1); RED CELL DISTRIBUTION WIDTH 14.7 % (11.6-14.6)
[2020-10-10 06:25] LABS: CHLORIDE 97 mEq/L (98-107)
[2020-10-10] MEDS: BLOOD SUGAR DIAGNOSTIC STRIP TEST SCH ×2 (07:02→11:45)
[2020-10-10] MEDS: INSULIN LISPRO 100 UNITS/ML SUBCUT SCH ×2 (07:02→12:13)
[2020-10-10] MEDS: FUROSEMIDE 40MG/4ML VIAL IVP SCH (07:02)
[2020-10-10 08:00] VITALS: BP 101/58
[2020-10-10 08:44] VITALS: BP 101/58
[2020-10-10] MEDS: CARVEDILOL 6.25 MG TABLET PO SCH (09:00)
[2020-10-10] MEDS: LOSARTAN POTASSIUM 25 MG TABLET PO SCH (09:00)
[2020-10-10] MEDS: SPIRONOLACTONE 50MG TABLET PO SCH (09:00)
[2020-10-10] MEDS: INSULIN GLARGINE UD 100 UNITS/ML SYR SUBCUT SCH (10:00)
[2020-10-10] MEDS: VANCOMYCIN 1250MG in DEXTROSE 5% WATER 250ML IV SCH (12:00)
[2020-10-10] MEDS: POTASSIUM CHLORIDE 20MEQ TABLET SR PO SCH (12:03)
[2020-10-10] MEDS: ENOXAPARIN 40MG/0.4ML SYR SUBCUT SCH (12:04)
[2020-10-10] MEDS ORDERED: FUROSEMIDE 40MG TABLET PO SCH (18:00)
== END 2020-10-10 13:00 | disposition home or self-care (01) | DRG 720 ==
LOC: ER 03:10 → 5WST 05:16 → ENRESERV 07:29
PROVIDERS: ADMIT Internal Medicine; ATTEND Internal Medicine
PROC: B54MZZA Ultrasonography of Right Upper Extremity Veins, Guidance (ICD-10-PCS; principal; 2020-10-09)
PROC: 4A023N7 Measurement of Cardiac Sampling and Pressure, Left Heart, Percutaneous Approach (ICD-10-PCS; 2020-10-09)
PROC: B211YZZ Fluoroscopy of Multiple Coronary Arteries using Other Contrast (ICD-10-PCS; 2020-10-09)
DX: A41.9 Sepsis, unspecified organism (principal); E43 Unspecified severe protein-calorie malnutrition; N49.2 Inflammatory disorders of scrotum; I50.23 Acute on chronic systolic (congestive) heart failure; I42.0 Dilated cardiomyopathy; Z68.41 Body mass index [BMI] 40.0-44.9, adult; I36.1 Nonrheumatic tricuspid (valve) insufficiency; E11.9 Type 2 diabetes mellitus without complications; E66.9 Obesity, unspecified; Z20.822 Contact with and (suspected) exposure to COVID-19; E78.5 Hyperlipidemia, unspecified; I11.0 Hypertensive heart disease with heart failure; N50.89 Other specified disorders of the male genital organs; I25.10 Atherosclerotic heart disease of native coronary artery without angina pectoris; E87.6 Hypokalemia; Z88.0 Allergy status to penicillin; Z79.899 Other long term (current) drug therapy; Z79.84 Long term (current) use of oral hypoglycemic drugs
CPT/HCPCS: 36415; 71045; 76870; 80048; 80053; 80202; 81003; 82962; 83735; 83880; 84484; 85025; 87426; 93005; 93458; 93970; 93976; 97162; 99285; C1769; C1887; C1893; J1644; J1650; J1815; J1885; J1940; J2250; J2270; J2370; J3010; J3370; J3475; J3480; J3490; J7040; J7060; Q9967

== ENCOUNTER 2020-11-05 10:44 | Inpatient (IN) | payer MEDICAID, OTHER ==
[~2020-11-05] VITALS: Ht 182.9 cm; Wt 170.1 kg
[~2020-11-05 10:44] MED LIST: ALD50 PO; COR6 PO; FURO80TA87 MT; LANTUSUD SUBCUT; LOSA25TA3 PO; METF-416 MT; POTA20TA82 PO
[2020-11-05] MEDS ORDERED: FUROSEMIDE 40MG/4ML VIAL IVP ONE (11:30)
[2020-11-05 12:35] LABS: BASOPHILS % 0.7 % (0.0-2.0); EOSINOPHILS % 6.5 % (0.0-5.0); HEMATOCRIT. 42.1 % (42.0-52.0); HEMOGLOBIN. 14.2 g/dL (14.0-18.0); LYMPHOCYTES % 12.9 % (20.0-50.0); MEAN CORPUSCULAR HEMOGLOBIN 31.1 pg (28.0-32.0); MEAN PLATELET VOLUME 9.7 fl (7.4-10.4); MONOCYTES % 9.8 % (2.0-8.0); NEUTROPHILS % 70.1 % (40.0-76.0); PLATELET 177 x1000/uL (130-400); RED BLOOD CELL COUNT 4.57 mill/uL (4.7-6.1); RED CELL DISTRIBUTION WIDTH 15.9 % (11.6-14.6)
[2020-11-05 12:39] LABS: CHLORIDE 105 mEq/L (98-107)
[2020-11-05] MEDS ORDERED: ENOXAPARIN 40MG/0.4ML SYR SUBCUT SCH (17:45)
[2020-11-05] MEDS ORDERED: MAGNESIUM/ALUMINUM HYDROXIDE/SIMETHICONE 30ML UDC PO PRN (17:45)
[2020-11-05] MEDS ORDERED: DOCUSATE SODIUM 100MG CAPSULE PO PRN (17:45)
[2020-11-05] MEDS ORDERED: CLONIDINE 0.1MG TABLET PO PRN (17:45)
[2020-11-05] MEDS ORDERED: GUAIFENESIN 200MG/10ML SUGAR FREE UDC PO PRN (17:45)
[2020-11-05] MEDS ORDERED: NALOXONE HCL 0.4MG/ML VIAL IV PRN (18:00)
[2020-11-05] MEDS ORDERED: DEXTROSE 50% WATER 50ML SYRINGE IV PRN (18:30)
[2020-11-05] MEDS: FUROSEMIDE 100MG/10ML VIAL IV SCH (18:36)
[2020-11-05] MEDS: ENOXAPARIN 30MG/0.3ML SYR SUBCUT SCH (18:37)
[2020-11-05] MEDS: SPIRONOLACTONE 25MG TABLET PO SCH (20:19)
[2020-11-05 20:55] VITALS: BP 129/86
[2020-11-05] MEDS: INSULIN LISPRO 100 UNITS/ML SUBCUT SCH (21:00)
[2020-11-05] MEDS: BLOOD SUGAR DIAGNOSTIC STRIP TEST SCH (21:00)
[2020-11-05] MEDS: HYDROCODONE/ACETAMINOPHEN 5/325MG TABLET PO PRN (21:50)
[2020-11-05] MEDS: CARVEDILOL 6.25 MG TABLET PO SCH (21:50)
[2020-11-06] VITALS: BP 119/74
[2020-11-06 04:00] VITALS: BP 115/77
[2020-11-06] MEDS: ENOXAPARIN 30MG/0.3ML SYR SUBCUT SCH (06:25)
[2020-11-06] MEDS: BLOOD SUGAR DIAGNOSTIC STRIP TEST SCH ×4 (06:26→21:01)
[2020-11-06] MEDS: FUROSEMIDE 100MG/10ML VIAL IV SCH ×2 (06:26→17:29)
[2020-11-06 06:47] LABS: CHLORIDE 106 mEq/L (98-107)
[2020-11-06 06:55] LABS: BASOPHILS % 0.6 % (0.0-2.0); EOSINOPHILS % 9.9 % (0.0-5.0); HEMATOCRIT. 40.7 % (42.0-52.0); HEMOGLOBIN. 13.4 g/dL (14.0-18.0); LYMPHOCYTES % 15.9 % (20.0-50.0); MEAN CORPUSCULAR HEMOGLOBIN 30.6 pg (28.0-32.0); MEAN CORPUSCULAR VOLUME 92.7 fL (80.0-94.0); MEAN PLATELET VOLUME 9.8 fl (7.4-10.4); MONOCYTES % 12.2 % (2.0-8.0); NEUTROPHILS % 61.4 % (40.0-76.0); PLATELET 172 x1000/uL (130-400); RED BLOOD CELL COUNT 4.39 mill/uL (4.7-6.1); RED CELL DISTRIBUTION WIDTH 15.6 % (11.6-14.6)
[2020-11-06 08:05] VITALS: BP 113/86
[2020-11-06] MEDS: INSULIN LISPRO 100 UNITS/ML SUBCUT SCH ×4 (08:50→20:57)
[2020-11-06] MEDS: CARVEDILOL 6.25 MG TABLET PO SCH ×2 (09:26→20:55)
[2020-11-06] MEDS: SPIRONOLACTONE 25MG TABLET PO SCH (09:26)
[2020-11-06] MEDS: ACETAMINOPHEN 325MG TABLET PO PRN (11:05)
[2020-11-06] MEDS: POTASSIUM CHLORIDE 20MEQ TABLET SR PO SCH (13:15)
[2020-11-06 16:15] VITALS: BP 122/77
[2020-11-06] MEDS: ENOXAPARIN 40MG/0.4ML SYR SUBCUT SCH (17:29)
[2020-11-06 20:00] VITALS: BP 110/80
[2020-11-06] MEDS: HYDROCODONE/ACETAMINOPHEN 5/325MG TABLET PO PRN (20:55)
[2020-11-07 00:06] VITALS: BP 103/78
[2020-11-07 04:00] VITALS: BP 124/77
[2020-11-07] MEDS: FUROSEMIDE 100MG/10ML VIAL IV SCH ×2 (06:31→17:44)
[2020-11-07] MEDS: BLOOD SUGAR DIAGNOSTIC STRIP TEST SCH ×4 (06:31→21:11)
[2020-11-07] MEDS: ENOXAPARIN 40MG/0.4ML SYR SUBCUT SCH ×2 (06:31→17:44)
[2020-11-07] MEDS: INSULIN LISPRO 100 UNITS/ML SUBCUT SCH ×4 (07:50→21:00)
[2020-11-07 08:12] VITALS: BP 126/77
[2020-11-07] MEDS: POTASSIUM CHLORIDE 20MEQ TABLET SR PO SCH (09:19)
[2020-11-07] MEDS: SPIRONOLACTONE 25MG TABLET PO SCH (09:19)
[2020-11-07] MEDS: CARVEDILOL 6.25 MG TABLET PO SCH ×2 (09:20→21:12)
[2020-11-07 12:18] VITALS: BP 100/68
[2020-11-07 16:28] VITALS: BP 104/80
[2020-11-07 20:00] VITALS: BP 114/78
[2020-11-07] MEDS: ACETAMINOPHEN 325MG TABLET PO PRN (21:12)
[2020-11-08] VITALS: BP 105/77
[2020-11-08 04:00] VITALS: BP 97/61
[2020-11-08] MEDS: FUROSEMIDE 100MG/10ML VIAL IV SCH (06:18)
[2020-11-08] MEDS: ENOXAPARIN 40MG/0.4ML SYR SUBCUT SCH (06:19)
[2020-11-08] MEDS: BLOOD SUGAR DIAGNOSTIC STRIP TEST SCH ×2 (06:20→13:12)
[2020-11-08] MEDS: INSULIN LISPRO 100 UNITS/ML SUBCUT SCH ×2 (07:50→13:11)
[2020-11-08] MEDS: CARVEDILOL 6.25 MG TABLET PO SCH (09:00)
[2020-11-08 09:11] VITALS: BP 106/67
[2020-11-08] MEDS: SPIRONOLACTONE 25MG TABLET PO SCH (11:02)
[2020-11-08] MEDS: POTASSIUM CHLORIDE 20MEQ TABLET SR PO SCH (11:03)
[2020-11-08 12:10] VITALS: BP 106/80
[2020-11-08 14:35] VITALS: BP 106/80
== END 2020-11-08 17:26 | disposition home or self-care (01) | DRG 194 ==
LOC: ER 10:44 → 6WST 14:39 → ENRESERV 16:21
PROVIDERS: ADMIT Hospitalist; ATTEND Hospitalist
DX: I50.23 Acute on chronic systolic (congestive) heart failure (principal); E44.0 Moderate protein-calorie malnutrition; I42.9 Cardiomyopathy, unspecified; Z68.43 Body mass index [BMI] 50.0-59.9, adult; E66.01 Morbid (severe) obesity due to excess calories; E11.9 Type 2 diabetes mellitus without complications; F17.200 Nicotine dependence, unspecified, uncomplicated; Z79.899 Other long term (current) drug therapy; Z88.0 Allergy status to penicillin
CPT/HCPCS: 36415; 71045; 80053; 82962; 83036; 83880; 84484; 85025; 93005; 99285; J1650; J1815; J1940

== ENCOUNTER 2021-01-20 05:59 | Inpatient (IN) | payer MEDICAID ==
[2021-01-20] VITALS (25 sets, daily range): BP systolic 52–163; BP diastolic 34–110
[~2021-01-20] VITALS: Ht 185.4 cm; Wt 118.4 kg
[2021-01-20] MEDS ORDERED: LEVOFLOXACIN 750MG PREMIX 150 ML IV ONE (06:15)
[2021-01-20] MEDS ORDERED: VANCOMYCIN 1 G PREMIX 200 ML IV ONE (06:15)
[2021-01-20 06:29] LABS: HEMATOCRIT. 44.5 % (42.0-52.0); HEMOGLOBIN. 14.8 g/dL (14.0-18.0); MEAN CORPUSCULAR VOLUME 90.5 fL (80.0-94.0); MEAN PLATELET VOLUME 9.7 fl (7.4-10.4); PLATELET 193 x1000/uL (130-400); RED BLOOD CELL COUNT 4.92 mill/uL (4.7-6.1); RED CELL DISTRIBUTION WIDTH 15.9 % (11.6-14.6)
[2021-01-20 06:37] LABS: CHLORIDE 104 mEq/L (98-107)
[2021-01-20 06:38] LABS: INR 1.3
[2021-01-20] MEDS ORDERED: FUROSEMIDE 40MG/4ML VIAL IVP ONE (06:45)
[2021-01-20] MEDS ORDERED: NITROGLYCERIN 50MG PREMIX 250 ML IV ONE (06:45)
[2021-01-20] MEDS ORDERED: ACETAMINOPHEN 325MG TABLET PO ONE (07:00)
[2021-01-20 07:06] LABS: PLATELET ESTIMATE NORMAL
[2021-01-20] MEDS ORDERED: DEXTROSE 50% WATER 50ML SYRINGE IV PRN (10:30)
[2021-01-20] MEDS ORDERED: ACETAMINOPHEN 325MG TABLET PO PRN ×2 (10:30)
[2021-01-20] MEDS ORDERED: ONDANSETRON HCL 4MG/2ML INJ IV PRN (10:30)
[2021-01-20] MEDS ORDERED: MAGNESIUM/ALUMINUM HYDROXIDE/SIMETHICONE 30ML UDC PO PRN (10:30)
[2021-01-20] MEDS ORDERED: FUROSEMIDE 100MG/10ML VIAL IVP SCH (10:30)
[2021-01-20] MEDS ORDERED: DIPHENHYDRAMINE 50MG/ML VIAL IV PRN (10:30)
[2021-01-20] MEDS ORDERED: IPRATROPIUM/ALBUTEROL 0.5-3(2.5)MG/3ML NEB NEB PRN (10:30)
[2021-01-20] MEDS ORDERED: CLONIDINE 0.1MG TABLET PO PRN (10:30)
[2021-01-20] MEDS ORDERED: ENOXAPARIN 30MG/0.3ML SYR SUBCUT SCH (10:45)
[2021-01-20] MEDS: BUMETANIDE 1MG/4ML VIAL IV SCH ×2 (11:12→19:44)
[2021-01-20] MEDS: BLOOD SUGAR DIAGNOSTIC STRIP TEST SCH ×3 (13:00→21:44)
[2021-01-20] MEDS ORDERED: ALBUTEROL (0.083%) 2.5MG/3ML NEB HHN PRN (14:15)
[2021-01-20] MEDS ORDERED: HYDROCODONE/ACETAMINOPHEN 10/325MG TABLET PO PRN (14:30)
[2021-01-20] MEDS: SODIUM CHLORIDE 0.9% INJ 3ML FLUSH IVF SCH (14:41)
[2021-01-20 14:44] LABS: BG BASE EXCESS -1.6 mmol/L (-2.0-2.0); BG CARBOXYHEMOGLOBIN 0.7 % (0.5-1.5); BG DEOXYHEMOGLOBIN 0.5 % (0.0-5.0); BG FRACTION INSPIRED OXYGEN 100; BG HCO3 ACT 22.6 mmol/L (22.0-26.0); BG METHEMOGLOBIN 0.3 % (0.0-1.5); BG OXYGEN SATURATION 99.5 % (92.0-98.5); BG OXYHEMOGLOBIN 98.5 % (94.0-97.0); BG PH 7.404 (7.350-7.450); BG PO2 218.9 mmHg (75.0-100.0); BG SAMPLE SITE RIGHT RADIAL; BG TOTAL HEMOGLOBIN 15.7 g/dL (12.0-18.0); BG VENT MODE MASK - CPAP
[2021-01-20] MEDS: INSULIN LISPRO 100 UNITS/ML SUBCUT SCH ×3 (14:49→22:39)
[2021-01-20] MEDS: POTASSIUM CHLORIDE 20MEQ TABLET SR PO SCH (16:00)
[2021-01-20] MEDS: IPRATROPIUM/ALBUTEROL 0.5-3(2.5)MG/3ML NEB NEB SCH ×2 (16:02→20:39)
[2021-01-20] MEDS ORDERED: INSULIN GLARGINE UD 100 UNITS/ML SYR SUBCUT SCH (22:00)
[2021-01-20] MEDS: ENOXAPARIN 40MG/0.4ML SYR SUBCUT SCH (22:36)
[2021-01-20] MEDS: CARVEDILOL 6.25 MG TABLET PO SCH (22:37)
[2021-01-21] VITALS (51 sets, daily range): BP systolic 47–166; BP diastolic 19–143
[2021-01-21] MEDS: IPRATROPIUM/ALBUTEROL 0.5-3(2.5)MG/3ML NEB NEB SCH ×2 (00:16→04:52)
[2021-01-21] MEDS: INSULIN GLARGINE UD 100 UNITS/ML SYR SUBCUT SCH ×2 (01:07→22:47)
[2021-01-21 05:48] LABS: HEMATOCRIT. 45.1 % (42.0-52.0); HEMOGLOBIN. 15.2 g/dL (14.0-18.0); MEAN CORPUSCULAR VOLUME 92.1 fL (80.0-94.0); MEAN PLATELET VOLUME 9.8 fl (7.4-10.4); PLATELET 187 x1000/uL (130-400); RED CELL DISTRIBUTION WIDTH 15.9 % (11.6-14.6)
[2021-01-21] MEDS: INSULIN LISPRO 100 UNITS/ML SUBCUT SCH ×4 (06:37→21:00)
[2021-01-21] MEDS: BLOOD SUGAR DIAGNOSTIC STRIP TEST SCH ×4 (06:37→21:22)
[2021-01-21] MEDS: BUMETANIDE 1MG/4ML VIAL IV SCH ×2 (08:08→18:46)
[2021-01-21] MEDS: ENOXAPARIN 40MG/0.4ML SYR SUBCUT SCH ×2 (08:09→22:41)
[2021-01-21] MEDS: SPIRONOLACTONE 50MG TABLET PO SCH (08:09)
[2021-01-21] MEDS: POTASSIUM CHLORIDE 20MEQ TABLET SR PO SCH ×2 (08:09→18:46)
[2021-01-21] MEDS: CARVEDILOL 6.25 MG TABLET PO SCH ×2 (08:09→22:42)
[2021-01-21] MEDS ORDERED: BUMETANIDE 1MG/4ML VIAL IV SCH (11:30)
[2021-01-21] MEDS ORDERED: HYDRALAZINE 20MG/ML VIAL IV SCH (11:30)
[2021-01-21 12:31] LABS: BG BASE EXCESS -3.2 mmol/L (-2.0-2.0); BG CARBOXYHEMOGLOBIN 0.7 % (0.5-1.5); BG DEOXYHEMOGLOBIN 5.1 % (0.0-5.0); BG FRACTION INSPIRED OXYGEN 100; BG HCO3 ACT 21.7 mmol/L (22.0-26.0); BG METHEMOGLOBIN 0.3 % (0.0-1.5); BG OXYGEN SATURATION 94.8 % (92.0-98.5); BG OXYHEMOGLOBIN 93.9 % (94.0-97.0); BG PH 7.364 (7.350-7.450); BG PO2 78.8 mmHg (75.0-100.0); BG SAMPLE SITE RIGHT RADIAL; BG TOTAL HEMOGLOBIN 16.5 g/dL (12.0-18.0); BG TOTAL RESPIRATORY RATE 38 b/min; BG VENT MODE MASK - BIPAP
[2021-01-21] MEDS: SODIUM CHLORIDE 0.9% INJ 3ML FLUSH IVF SCH (13:02)
[2021-01-21 13:07] LABS: CHLORIDE 106 mEq/L (98-107)
[2021-01-21 13:46] LABS: PLATELET ESTIMATE NORMAL
[2021-01-21] MEDS: IPRATROPIUM BROMIDE (0.02%) 0.5MG/2.5ML NEB HHN SCH ×2 (15:29→21:16)
[2021-01-21 15:48] LABS: *AMPHETAMINES SCREEN URINE NEGATIVE (NEGATIVE); *BARBITURATES SCREEN URINE NEGATIVE (NEGATIVE)
[2021-01-21 15:49] LABS: *BENZODIAZEPINES SCREEN URINE NEGATIVE (NEGATIVE); *COCAINE SCREEN URINE NEGATIVE (NEGATIVE); METHADONE URINE SCREEN NEGATIVE (NEGATIVE)
[2021-01-21 15:50] LABS: CANNABINOID URINE SCREEN NEGATIVE (NEGATIVE); OPIATES URINE SCREEN NEGATIVE (NEGATIVE)
[2021-01-21 15:51] LABS: PHENCYCLIDINE URINE SCREEN NEGATIVE (NEGATIVE)
[2021-01-22] VITALS (65 sets, daily range): BP systolic 75–193; BP diastolic 16–109
[2021-01-22] MEDS: IPRATROPIUM BROMIDE (0.02%) 0.5MG/2.5ML NEB HHN SCH ×4 (01:00→20:35)
[2021-01-22] MEDS: BLOOD SUGAR DIAGNOSTIC STRIP TEST SCH ×4 (07:00→21:28)
[2021-01-22 08:15] LABS: BG CARBOXYHEMOGLOBIN 0.6 % (0.5-1.5); BG DEOXYHEMOGLOBIN 4.4 % (0.0-5.0); BG HCO3 ACT 27.7 mmol/L (22.0-26.0); BG METHEMOGLOBIN 0.2 % (0.0-1.5); BG OXYGEN SATURATION 95.6 % (92.0-98.5); BG OXYHEMOGLOBIN 94.8 % (94.0-97.0); BG PCO2 47.1 mmHg (35.0-45.0); BG PH 7.387 (7.350-7.450); BG PO2 81.1 mmHg (75.0-100.0); BG SAMPLE SITE RIGHT RADIAL; BG TOTAL HEMOGLOBIN 15.4 g/dL (12.0-18.0); BG VENT MODE MASK - BIPAP
[2021-01-22] MEDS: POTASSIUM CHLORIDE 20MEQ TABLET SR PO SCH ×2 (09:10→17:22)
[2021-01-22] MEDS: CARVEDILOL 6.25 MG TABLET PO SCH ×2 (09:10→21:27)
[2021-01-22] MEDS: METOLAZONE 10MG TABLET PO SCH (09:11)
[2021-01-22] MEDS: ENOXAPARIN 40MG/0.4ML SYR SUBCUT SCH ×2 (09:11→21:26)
[2021-01-22] MEDS: SPIRONOLACTONE 50MG TABLET PO SCH (09:11)
[2021-01-22] MEDS: BUMETANIDE 1MG/4ML VIAL IV SCH ×3 (09:30→17:22)
[2021-01-22] MEDS ORDERED: NALOXONE HCL 0.4MG/ML VIAL IV PRN (09:45)
[2021-01-22] MEDS: DOBUTAMINE 250MG PREMIX 250 ML IV SCH ×2 (10:20→20:39)
[2021-01-22] MEDS: INSULIN LISPRO 100 UNITS/ML SUBCUT SCH ×3 (12:00→21:28)
[2021-01-22 12:52] LABS: CHLORIDE 101 mEq/L (98-107)
[2021-01-22] MEDS ORDERED: MAGNESIUM 2 G PREMIX 50 ML IV SCH (14:00)
[2021-01-22] MEDS: SODIUM CHLORIDE 0.9% INJ 3ML FLUSH IVF SCH (14:00)
[2021-01-22] MEDS: INSULIN GLARGINE UD 100 UNITS/ML SYR SUBCUT SCH (23:11)
[2021-01-23] VITALS (92 sets, daily range): BP systolic 98–158; BP diastolic 47–90
[2021-01-23] MEDS: IPRATROPIUM BROMIDE (0.02%) 0.5MG/2.5ML NEB HHN SCH ×4 (00:32→20:08)
[2021-01-23 05:23] LABS: BASOPHILS % 0.4 % (0.0-2.0); EOSINOPHILS % 1.1 % (0.0-5.0); HEMATOCRIT. 39.1 % (42.0-52.0); HEMOGLOBIN. 12.9 g/dL (14.0-18.0); LYMPHOCYTES % 7.2 % (20.0-50.0); MEAN CORPUSCULAR HEMOGLOBIN 30.1 pg (28.0-32.0); MEAN CORPUSCULAR VOLUME 91.2 fL (80.0-94.0); MEAN PLATELET VOLUME 9.8 fl (7.4-10.4); MONOCYTES % 3.6 % (2.0-8.0); NEUTROPHILS % 87.7 % (40.0-76.0); PLATELET 174 x1000/uL (130-400); RED BLOOD CELL COUNT 4.29 mill/uL (4.7-6.1); RED CELL DISTRIBUTION WIDTH 15.8 % (11.6-14.6)
[2021-01-23 05:40] LABS: CHLORIDE 104 mEq/L (98-107)
[2021-01-23] MEDS: BLOOD SUGAR DIAGNOSTIC STRIP TEST SCH ×4 (06:37→21:00)
[2021-01-23] MEDS: INSULIN LISPRO 100 UNITS/ML SUBCUT SCH ×4 (07:00→21:00)
[2021-01-23] MEDS: DOBUTAMINE 250MG PREMIX 250 ML IV SCH ×2 (07:40→18:23)
[2021-01-23] MEDS: CARVEDILOL 6.25 MG TABLET PO SCH ×2 (08:44→21:25)
[2021-01-23] MEDS: SPIRONOLACTONE 50MG TABLET PO SCH (08:45)
[2021-01-23] MEDS: POTASSIUM CHLORIDE 20MEQ TABLET SR PO SCH ×2 (08:45→16:55)
[2021-01-23] MEDS: ENOXAPARIN 40MG/0.4ML SYR SUBCUT SCH ×2 (08:45→21:24)
[2021-01-23] MEDS: METOLAZONE 10MG TABLET PO SCH (08:45)
[2021-01-23] MEDS: BUMETANIDE 1MG/4ML VIAL IV SCH ×3 (09:43→16:54)
[2021-01-23 09:51] LABS: BG BASE EXCESS 6.7 mmol/L (-2.0-2.0); BG CARBOXYHEMOGLOBIN 0.5 % (0.5-1.5); BG DEOXYHEMOGLOBIN 4.1 % (0.0-5.0); BG FRACTION INSPIRED OXYGEN 100; BG HCO3 ACT 32.5 mmol/L (22.0-26.0); BG METHEMOGLOBIN 0.1 % (0.0-1.5); BG OXYGEN SATURATION 95.9 % (92.0-98.5); BG OXYHEMOGLOBIN 95.3 % (94.0-97.0); BG PCO2 50.6 mmHg (35.0-45.0); BG PH 7.426 (7.350-7.450); BG PO2 83.3 mmHg (75.0-100.0); BG SAMPLE SITE RIGHT RADIAL; BG TOTAL HEMOGLOBIN 14.7 g/dL (12.0-18.0); BG TOTAL RESPIRATORY RATE 22 b/min; BG VENT MODE MASK - BIPAP
[2021-01-23] MEDS ORDERED: MAGNESIUM 1 G PREMIX 100 ML IV SCH (10:00)
[2021-01-23] MEDS: DOCUSATE SODIUM 100MG CAPSULE PO SCH ×2 (16:55→21:25)
[2021-01-23] MEDS: GUAIFENESIN 600MG ER TABLET PO SCH ×2 (16:55→21:25)
[2021-01-23] MEDS: INSULIN GLARGINE UD 100 UNITS/ML SYR SUBCUT SCH (21:26)
[2021-01-24] VITALS (48 sets, daily range): BP systolic 114–156; BP diastolic 58–91
[2021-01-24] MEDS: IPRATROPIUM BROMIDE (0.02%) 0.5MG/2.5ML NEB HHN SCH ×5 (02:20→23:58)
[2021-01-24 05:40] LABS: BASOPHILS % 0.5 % (0.0-2.0); EOSINOPHILS % 6.2 % (0.0-5.0); HEMATOCRIT. 38.1 % (42.0-52.0); HEMOGLOBIN. 12.5 g/dL (14.0-18.0); LYMPHOCYTES % 8.2 % (20.0-50.0); MEAN CORPUSCULAR VOLUME 91.4 fL (80.0-94.0); MEAN PLATELET VOLUME 9.7 fl (7.4-10.4); MONOCYTES % 4.4 % (2.0-8.0); NEUTROPHILS % 80.7 % (40.0-76.0); PLATELET 165 x1000/uL (130-400); RED BLOOD CELL COUNT 4.17 mill/uL (4.7-6.1); RED CELL DISTRIBUTION WIDTH 16.1 % (11.6-14.6)
[2021-01-24 05:49] LABS: CHLORIDE 98 mEq/L (98-107)
[2021-01-24] MEDS: INSULIN LISPRO 100 UNITS/ML SUBCUT SCH ×4 (07:00→21:07)
[2021-01-24] MEDS: BLOOD SUGAR DIAGNOSTIC STRIP TEST SCH ×4 (07:28→21:00)
[2021-01-24 08:30] LABS: BG CARBOXYHEMOGLOBIN 0.8 % (0.5-1.5); BG DEOXYHEMOGLOBIN 1.8 % (0.0-5.0); BG HCO3 ACT 34.5 mmol/L (22.0-26.0); BG METHEMOGLOBIN 0.3 % (0.0-1.5); BG OXYGEN SATURATION 98.2 % (92.0-98.5); BG OXYHEMOGLOBIN 97.1 % (94.0-97.0); BG PCO2 45.4 mmHg (35.0-45.0); BG PH 7.499 (7.350-7.450); BG PO2 106.2 mmHg (75.0-100.0); BG SAMPLE SITE RIGHT RADIAL; BG TOTAL HEMOGLOBIN 13.8 g/dL (12.0-18.0); BG VENT MODE MASK - BIPAP
[2021-01-24] MEDS: POTASSIUM CHLORIDE 20MEQ TABLET SR PO SCH ×3 (09:20→18:32)
[2021-01-24] MEDS: GUAIFENESIN 600MG ER TABLET PO SCH ×2 (09:20→21:05)
[2021-01-24] MEDS: DOCUSATE SODIUM 100MG CAPSULE PO SCH ×2 (09:20→18:32)
[2021-01-24] MEDS: ENOXAPARIN 40MG/0.4ML SYR SUBCUT SCH ×2 (09:20→21:05)
[2021-01-24] MEDS: BUMETANIDE 1MG/4ML VIAL IV SCH ×3 (09:20→18:32)
[2021-01-24] MEDS: METOLAZONE 10MG TABLET PO SCH (09:21)
[2021-01-24] MEDS: CARVEDILOL 6.25 MG TABLET PO SCH ×2 (09:21→21:05)
[2021-01-24] MEDS: SPIRONOLACTONE 50MG TABLET PO SCH (09:21)
[2021-01-24] MEDS: DOBUTAMINE 250MG PREMIX 250 ML IV SCH ×2 (15:23→15:46)
[2021-01-24] MEDS: INSULIN GLARGINE UD 100 UNITS/ML SYR SUBCUT SCH (21:06)
[2021-01-25] VITALS (12 sets, daily range): BP systolic 103–125; BP diastolic 24–82
[2021-01-25] MEDS: IPRATROPIUM BROMIDE (0.02%) 0.5MG/2.5ML NEB HHN SCH ×3 (04:07→20:04)
[2021-01-25] MEDS: DOBUTAMINE 250MG PREMIX 250 ML IV SCH ×3 (05:25→21:05)
[2021-01-25] MEDS: INSULIN LISPRO 100 UNITS/ML SUBCUT SCH ×4 (08:00→21:15)
[2021-01-25 08:07] LABS: BASOPHILS % 0.8 % (0.0-2.0); EOSINOPHILS % 6.8 % (0.0-5.0); HEMATOCRIT. 37.7 % (42.0-52.0); HEMOGLOBIN. 12.5 g/dL (14.0-18.0); LYMPHOCYTES % 12.3 % (20.0-50.0); MEAN CORPUSCULAR HEMOGLOBIN 29.9 pg (28.0-32.0); MEAN CORPUSCULAR VOLUME 90.3 fL (80.0-94.0); MEAN PLATELET VOLUME 9.9 fl (7.4-10.4); MONOCYTES % 7.7 % (2.0-8.0); NEUTROPHILS % 72.4 % (40.0-76.0); PLATELET 167 x1000/uL (130-400); RED BLOOD CELL COUNT 4.17 mill/uL (4.7-6.1); RED CELL DISTRIBUTION WIDTH 15.6 % (11.6-14.6)
[2021-01-25] MEDS: BLOOD SUGAR DIAGNOSTIC STRIP TEST SCH ×4 (08:25→21:05)
[2021-01-25] MEDS: CARVEDILOL 6.25 MG TABLET PO SCH ×2 (09:00→21:07)
[2021-01-25] MEDS: DOCUSATE SODIUM 100MG CAPSULE PO SCH ×2 (09:00→17:00)
[2021-01-25 09:05] LABS: CHLORIDE 93 mEq/L (98-107)
[2021-01-25 09:10] LABS: PHOSPHORUS 3.6 mg/dL (2.5-4.9)
[2021-01-25 09:13] LABS: BG BASE EXCESS 11.6 mmol/L (-2.0-2.0); BG CARBOXYHEMOGLOBIN 0.7 % (0.5-1.5); BG DEOXYHEMOGLOBIN 5.5 % (0.0-5.0); BG FRACTION INSPIRED OXYGEN 50; BG HCO3 ACT 36.2 mmol/L (22.0-26.0); BG METHEMOGLOBIN 0.3 % (0.0-1.5); BG OXYGEN SATURATION 94.4 % (92.0-98.5); BG OXYHEMOGLOBIN 93.5 % (94.0-97.0); BG PCO2 46.3 mmHg (35.0-45.0); BG PH 7.511 (7.350-7.450); BG PO2 67.9 mmHg (75.0-100.0); BG SAMPLE SITE RIGHT RADIAL; BG VENT MODE MASK - BIPAP
[2021-01-25] MEDS: POTASSIUM CHLORIDE 20MEQ TABLET SR PO SCH ×3 (09:57→17:28)
[2021-01-25] MEDS: SPIRONOLACTONE 50MG TABLET PO SCH (09:58)
[2021-01-25] MEDS: GUAIFENESIN 600MG ER TABLET PO SCH ×2 (09:59→21:05)
[2021-01-25] MEDS: METOLAZONE 5MG TABLET PO SCH (10:01)
[2021-01-25] MEDS: ENOXAPARIN 40MG/0.4ML SYR SUBCUT SCH ×2 (10:01→21:00)
[2021-01-25] MEDS ORDERED: POTASSIUM CHLORIDE 10MEQ TABLET SR PO SCH (10:30)
[2021-01-25] MEDS: BUMETANIDE 1MG/4ML VIAL IV SCH ×2 (13:15→17:28)
[2021-01-25] MEDS: INSULIN GLARGINE UD 100 UNITS/ML SYR SUBCUT SCH (22:32)
[2021-01-26] VITALS (11 sets, daily range): BP systolic 101–123; BP diastolic 67–79
[2021-01-26] MEDS: IPRATROPIUM BROMIDE (0.02%) 0.5MG/2.5ML NEB HHN SCH ×4 (00:23→20:44)
[2021-01-26] MEDS: BLOOD SUGAR DIAGNOSTIC STRIP TEST SCH ×4 (07:30→21:30)
[2021-01-26] MEDS: INSULIN LISPRO 100 UNITS/ML SUBCUT SCH ×4 (08:00→21:30)
[2021-01-26] MEDS: DOCUSATE SODIUM 100MG CAPSULE PO SCH ×2 (09:00→17:00)
[2021-01-26] MEDS: CARVEDILOL 6.25 MG TABLET PO SCH ×2 (09:00→21:29)
[2021-01-26] MEDS: BUMETANIDE 1MG/4ML VIAL IV SCH ×3 (09:36→18:25)
[2021-01-26] MEDS: POTASSIUM CHLORIDE 20MEQ TABLET SR PO SCH ×3 (09:36→18:25)
[2021-01-26] MEDS: GUAIFENESIN 600MG ER TABLET PO SCH ×2 (09:37→21:27)
[2021-01-26] MEDS: ENOXAPARIN 40MG/0.4ML SYR SUBCUT SCH ×2 (09:37→21:27)
[2021-01-26] MEDS: SPIRONOLACTONE 50MG TABLET PO SCH (09:37)
[2021-01-26] MEDS: METOLAZONE 5MG TABLET PO SCH (09:43)
[2021-01-26] MEDS: DOBUTAMINE 250MG PREMIX 250 ML IV SCH (13:36)
[2021-01-26] MEDS: INSULIN GLARGINE UD 100 UNITS/ML SYR SUBCUT SCH (21:56)
[2021-01-27] VITALS (11 sets, daily range): BP systolic 104–152; BP diastolic 50–132
[2021-01-27] MEDS: IPRATROPIUM BROMIDE (0.02%) 0.5MG/2.5ML NEB HHN SCH ×5 (01:27→20:53)
[2021-01-27] MEDS: BLOOD SUGAR DIAGNOSTIC STRIP TEST SCH ×4 (07:30→21:00)
[2021-01-27] MEDS: INSULIN LISPRO 100 UNITS/ML SUBCUT SCH ×4 (08:00→21:32)
[2021-01-27] MEDS: DOCUSATE SODIUM 100MG CAPSULE PO SCH ×2 (09:00→17:00)
[2021-01-27] MEDS: ENOXAPARIN 40MG/0.4ML SYR SUBCUT SCH ×2 (10:13→21:26)
[2021-01-27] MEDS: BUMETANIDE 1MG/4ML VIAL IV SCH ×3 (10:13→18:22)
[2021-01-27] MEDS: GUAIFENESIN 600MG ER TABLET PO SCH ×2 (10:13→21:31)
[2021-01-27] MEDS: POTASSIUM CHLORIDE 20MEQ TABLET SR PO SCH ×3 (10:14→18:22)
[2021-01-27] MEDS: METOLAZONE 5MG TABLET PO SCH (10:14)
[2021-01-27] MEDS: SPIRONOLACTONE 50MG TABLET PO SCH (10:14)
[2021-01-27] MEDS: CARVEDILOL 6.25 MG TABLET PO SCH ×2 (10:14→21:00)
[2021-01-27 12:43] LABS: CHLORIDE 88 mEq/L (98-107)
[2021-01-27] MEDS ORDERED: CARVEDILOL 6.25 MG TABLET PO SCH (21:00)
[2021-01-27] MEDS: INSULIN GLARGINE UD 100 UNITS/ML SYR SUBCUT SCH (21:27)
[2021-01-28] VITALS (11 sets, daily range): BP systolic 100–149; BP diastolic 60–88
[2021-01-28] MEDS: IPRATROPIUM BROMIDE (0.02%) 0.5MG/2.5ML NEB HHN SCH ×4 (00:49→20:15)
[2021-01-28] MEDS: BLOOD SUGAR DIAGNOSTIC STRIP TEST SCH ×4 (07:47→21:00)
[2021-01-28] MEDS: INSULIN LISPRO 100 UNITS/ML SUBCUT SCH ×4 (07:47→22:10)
[2021-01-28] MEDS: BUMETANIDE 1MG/4ML VIAL IV SCH ×2 (08:40→13:05)
[2021-01-28] MEDS: POTASSIUM CHLORIDE 20MEQ TABLET SR PO SCH ×3 (08:40→18:25)
[2021-01-28] MEDS: GUAIFENESIN 600MG ER TABLET PO SCH ×2 (08:41→22:09)
[2021-01-28] MEDS: DOCUSATE SODIUM 100MG CAPSULE PO SCH ×3 (08:41→17:00)
[2021-01-28] MEDS: ENOXAPARIN 40MG/0.4ML SYR SUBCUT SCH (08:42)
[2021-01-28] MEDS: CARVEDILOL 6.25 MG TABLET PO SCH (08:42)
[2021-01-28] MEDS: SPIRONOLACTONE 50MG TABLET PO SCH (08:43)
[2021-01-28] MEDS: METOLAZONE 5MG TABLET PO SCH (08:54)
[2021-01-28 12:27] LABS: BG BASE EXCESS 14.1 mmol/L (-2.0-2.0); BG CARBOXYHEMOGLOBIN 1.2 % (0.5-1.5); BG DEOXYHEMOGLOBIN 10.2 % (0.0-5.0); BG FRACTION INSPIRED OXYGEN 21; BG HCO3 ACT 38.6 mmol/L (22.0-26.0); BG METHEMOGLOBIN 0.3 % (0.0-1.5); BG OXYGEN SATURATION 89.6 % (92.0-98.5); BG OXYHEMOGLOBIN 88.3 % (94.0-97.0); BG PCO2 46.2 mmHg (35.0-45.0); BG PO2 55.6 mmHg (75.0-100.0); BG SAMPLE SITE RIGHT RADIAL; BG TOTAL HEMOGLOBIN 15.2 g/dL (12.0-18.0); BG VENT MODE ROOM AIR
[2021-01-28] MEDS: BUMETANIDE 1MG TABLET PO SCH (18:25)
[2021-01-28] MEDS: ENOXAPARIN 30MG/0.3ML SYR SUBCUT SCH (22:07)
[2021-01-28] MEDS: CARVEDILOL 12.5MG TABLET PO SCH (22:09)
[2021-01-28] MEDS: INSULIN GLARGINE UD 100 UNITS/ML SYR SUBCUT SCH (22:10)
[2021-01-29] VITALS: BP 102/66
[2021-01-29] MEDS: IPRATROPIUM BROMIDE (0.02%) 0.5MG/2.5ML NEB HHN SCH ×4 (00:13→13:09)
[2021-01-29 04:00] VITALS: BP 103/44
[2021-01-29 08:00] VITALS: BP 159/123
[2021-01-29] MEDS: INSULIN LISPRO 100 UNITS/ML SUBCUT SCH ×2 (08:00→12:46)
[2021-01-29] MEDS: METOLAZONE 5MG TABLET PO SCH (08:21)
[2021-01-29] MEDS: BUMETANIDE 1MG TABLET PO SCH ×2 (08:21→12:45)
[2021-01-29] MEDS: POTASSIUM CHLORIDE 20MEQ TABLET SR PO SCH ×2 (08:21→12:48)
[2021-01-29] MEDS: SPIRONOLACTONE 50MG TABLET PO SCH (08:21)
[2021-01-29] MEDS: CARVEDILOL 12.5MG TABLET PO SCH (08:22)
[2021-01-29] MEDS: BLOOD SUGAR DIAGNOSTIC STRIP TEST SCH ×2 (08:22→12:45)
[2021-01-29] MEDS: ENOXAPARIN 30MG/0.3ML SYR SUBCUT SCH (08:25)
[2021-01-29] MEDS: DOCUSATE SODIUM 100MG CAPSULE PO SCH (09:00)
[2021-01-29] MEDS ORDERED: LOSARTAN POTASSIUM 25 MG TABLET PO SCH (09:00)
[2021-01-29] MEDS: GUAIFENESIN 600MG ER TABLET PO SCH (09:16)
[2021-01-29 12:01] VITALS: BP 112/84
[2021-01-29 16:00] VITALS: BP 96/49
[2021-01-29 16:06] LABS: CHLORIDE 88 mEq/L (98-107)
[2021-01-29] MEDS ORDERED: BUME2TAB34 MT (16:25)
[2021-01-29 16:30] VITALS: BP 100/56
== END 2021-01-29 20:06 | disposition home or self-care (01) | DRG 194 ==
LOC: ER 05:59 → ENRESERV 13:31 → MICUSO 13:49 → 5EST 01-24 10:57
PROVIDERS: ADMIT Internal Medicine; ATTEND Internal Medicine
PROC: 5A09557 Assistance with Respiratory Ventilation, Greater than 96 Consecutive Hours, Continuous Positive Airway Pressure (ICD-10-PCS; principal; 2021-01-20)
DX: I11.0 Hypertensive heart disease with heart failure (principal); J96.01 Acute respiratory failure with hypoxia; I47.2 Ventricular tachycardia; E44.1 Mild protein-calorie malnutrition; Z20.822 Contact with and (suspected) exposure to COVID-19; I50.43 Acute on chronic combined systolic (congestive) and diastolic (congestive) heart failure; I42.0 Dilated cardiomyopathy; E87.6 Hypokalemia; E11.9 Type 2 diabetes mellitus without complications; I49.3 Ventricular premature depolarization; E66.01 Morbid (severe) obesity due to excess calories; E78.5 Hyperlipidemia, unspecified; I25.10 Atherosclerotic heart disease of native coronary artery without angina pectoris; N50.89 Other specified disorders of the male genital organs; Z68.34 Body mass index [BMI] 34.0-34.9, adult; Z87.891 Personal history of nicotine dependence; Z88.0 Allergy status to penicillin; Z79.4 Long term (current) use of insulin; Z79.899 Other long term (current) drug therapy
CPT/HCPCS: 36415; 36600; 71045; 80048; 80053; 80305; 82375; 82805; 82962; 83036; 83605; 83735; 83880; 84100; 84145; 84484; 85025; 87426; 87804; 93005; 93970; 94640; 94660; 97162; 99291; J1250; J1650; J1815; J1940; J1956; J3370; J3475; J3490; J7042

== ENCOUNTER 2021-04-07 20:54 | Inpatient (IN) | payer MEDICAID ==
[~2021-04-07] VITALS: Ht 182.9 cm; Wt 119.3 kg
[~2021-04-07 20:54] MED LIST changes: -ALD50 PO; +ATROV IH; +BUME2TAB7 PO; +CARV3.1242 PO; -COR6 PO; -FURO80TA87 MT; +METF-414 PO; -METF-416 MT; +METO5TAB7 PO; +SPIR25TA PO
[2021-04-07] MEDS ORDERED: NITROGLYCERIN OINT 1GM/INCH UDPKT TD ONE (21:30)
[2021-04-08 01:00] LABS: CHLORIDE 109 mEq/L (98-107)
[2021-04-08 01:01] LABS: EOSINOPHILS % 3.7 % (0.0-5.0); HEMATOCRIT. 44.5 % (42.0-52.0); HEMOGLOBIN. 14.5 g/dL (14.0-18.0); LYMPHOCYTES % 34.3 % (20.0-50.0); MEAN CORPUSCULAR HEMOGLOBIN 29.8 pg (28.0-32.0); MEAN CORPUSCULAR VOLUME 91.2 fL (80.0-94.0); MEAN PLATELET VOLUME 10.9 fl (7.4-10.4); MONOCYTES % 11.6 % (2.0-8.0); NEUTROPHILS % 49.4 % (40.0-76.0); PLATELET 161 x1000/uL (130-400); RED BLOOD CELL COUNT 4.88 mill/uL (4.7-6.1); RED CELL DISTRIBUTION WIDTH 16.5 % (11.6-14.6)
[2021-04-08] MEDS ORDERED: FUROSEMIDE 40MG/4ML VIAL IVP NR (01:30)
[2021-04-08] MEDS ORDERED: ONDANSETRON HCL 4MG/2ML INJ IV PRN (08:45)
[2021-04-08] MEDS ORDERED: ACETAMINOPHEN 325MG TABLET PO PRN (08:45)
[2021-04-08] MEDS ORDERED: FUROSEMIDE 100MG/10ML VIAL IVP SCH (09:00)
[2021-04-08] MEDS: ENOXAPARIN 30MG/0.3ML SYR SUBCUT SCH ×2 (09:17→21:00)
[2021-04-08] MEDS: LOSARTAN POTASSIUM 50 MG TABLET PO SCH (09:17)
[2021-04-08] MEDS: CARVEDILOL 12.5MG TABLET PO SCH ×2 (09:17→20:45)
[2021-04-08] MEDS: ISOSORBIDE MONONITRATE 30MG TABLET SR 24HR PO SCH (10:00)
[2021-04-08] MEDS ORDERED: METOLAZONE 2.5MG TABLET PO NR (10:30)
[2021-04-08] MEDS: BUMETANIDE 1MG/4ML VIAL IV SCH (18:14)
[2021-04-09] MEDS: METOLAZONE 2.5MG TABLET PO SCH (07:09)
[2021-04-09] MEDS: BUMETANIDE 1MG/4ML VIAL IV SCH ×2 (07:09→19:01)
[2021-04-09 07:15] LABS: CHLORIDE 106 mEq/L (98-107)
[2021-04-09] MEDS: ISOSORBIDE MONONITRATE 30MG TABLET SR 24HR PO SCH (09:00)
[2021-04-09] MEDS: LOSARTAN POTASSIUM 50 MG TABLET PO SCH (09:00)
[2021-04-09] MEDS: CARVEDILOL 12.5MG TABLET PO SCH ×2 (09:00→20:19)
[2021-04-09] MEDS: ENOXAPARIN 30MG/0.3ML SYR SUBCUT SCH ×2 (11:07→20:18)
[2021-04-09] MEDS: SPIRONOLACTONE 25MG TABLET PO SCH (11:07)
[2021-04-09] MEDS: POTASSIUM CHLORIDE 20MEQ TABLET SR PO SCH (11:19)
[2021-04-09] MEDS ORDERED: METO2.5T2 PO (18:39)
[2021-04-09 20:00] VITALS: BP 97/65
[2021-04-09 22:00] VITALS: BP 97/65
[2021-04-10] VITALS: BP 102/69
[2021-04-10 00:16] VITALS: BP 103/67
[2021-04-10 04:00] VITALS: BP 95/55
[2021-04-10] MEDS: METOLAZONE 2.5MG TABLET PO SCH (05:04)
[2021-04-10] MEDS: BUMETANIDE 1MG/4ML VIAL IV SCH (05:52)
[2021-04-10 08:00] VITALS: BP 103/67
[2021-04-10] MEDS: POTASSIUM CHLORIDE 20MEQ TABLET SR PO SCH (08:19)
[2021-04-10] MEDS: CARVEDILOL 12.5MG TABLET PO SCH (08:20)
[2021-04-10] MEDS: LOSARTAN POTASSIUM 50 MG TABLET PO SCH (08:20)
[2021-04-10] MEDS: SPIRONOLACTONE 25MG TABLET PO SCH (08:20)
[2021-04-10] MEDS: ISOSORBIDE MONONITRATE 30MG TABLET SR 24HR PO SCH (08:20)
[2021-04-10] MEDS: ENOXAPARIN 30MG/0.3ML SYR SUBCUT SCH (08:21)
== END 2021-04-10 11:25 | disposition home or self-care (01) | DRG 194 ==
LOC: ER 20:54 → MICUSO 04-08 02:24 → 8WST 04-09 08:29
PROVIDERS: ADMIT Internal Medicine; ATTEND Internal Medicine
PROC: 0W993ZZ Drainage of Right Pleural Cavity, Percutaneous Approach (ICD-10-PCS; principal; 2021-04-09)
DX: I11.0 Hypertensive heart disease with heart failure (principal); J91.8 Pleural effusion in other conditions classified elsewhere; E44.0 Moderate protein-calorie malnutrition; R65.10 Systemic inflammatory response syndrome (SIRS) of non-infectious origin without acute organ dysfunction; I42.0 Dilated cardiomyopathy; E11.9 Type 2 diabetes mellitus without complications; D72.819 Decreased white blood cell count, unspecified; E66.9 Obesity, unspecified; I16.0 Hypertensive urgency; E87.8 Other disorders of electrolyte and fluid balance, not elsewhere classified; Z20.822 Contact with and (suspected) exposure to COVID-19; I50.23 Acute on chronic systolic (congestive) heart failure; I25.10 Atherosclerotic heart disease of native coronary artery without angina pectoris; E78.5 Hyperlipidemia, unspecified; Z87.891 Personal history of nicotine dependence; Z88.0 Allergy status to penicillin; Z68.35 Body mass index [BMI] 35.0-35.9, adult; Z82.49 Family history of ischemic heart disease and other diseases of the circulatory system
CPT/HCPCS: 32555; 36415; 71045; 80048; 80053; 83880; 84484; 85025; 87426; 93005; 93306; 99285; J1650; J1940; J3490

== ENCOUNTER 2021-07-26 07:33 | Emergency (ER) | payer MEDICAID ==
[~2021-07-26] VITALS: Ht 188 cm; Wt 91.0 kg
[~2021-07-26 07:33] MED LIST changes: +METO2.5T2 PO
[2021-07-26] MEDS ORDERED: IBUPROFEN 600MG TABLET PO STA (07:44)
[2021-07-26 08:15] LABS: BASOPHILS % 1.1 % (0.0-2.0); EOSINOPHILS % 3.6 % (0.0-5.0); HEMATOCRIT. 35.8 % (42.0-52.0); HEMOGLOBIN. 12.7 g/dL (14.0-18.0); LYMPHOCYTES % 21.8 % (20.0-50.0); MEAN CORPUSCULAR HEMOGLOBIN 31.1 pg (28.0-32.0); MEAN CORPUSCULAR VOLUME 87.7 fL (80.0-94.0); MEAN PLATELET VOLUME 10.1 fl (7.4-10.4); MONOCYTES % 10.5 % (2.0-8.0); PLATELET 165 x1000/uL (130-400); RED BLOOD CELL COUNT 4.08 mill/uL (4.7-6.1); RED CELL DISTRIBUTION WIDTH 14.1 % (11.6-14.6)
[2021-07-26 08:27] LABS: CHLORIDE 91 mEq/L (98-107)
[2021-07-26] MEDS ORDERED: POTASSIUM CHLORIDE INJ 40 MEQ in DEXT 5% WATER 500 ML IV ONE (09:00)
[2021-07-26] MEDS ORDERED: POTASSIUM CHLORIDE 20MEQ TABLET SR PO ONE ×2 (09:00→12:15)
[2021-07-26] MEDS ORDERED: IBUPROFEN 600MG TABLET PO NR (09:30)
[2021-07-26] MEDS ORDERED: KCL 20MEQ/100ML X 2 FOR TOTAL KCL 40MEQ/200ML IV SCH (10:00)
[2021-07-26 13:08] VITALS: BP 130/93
== END 2021-07-26 13:09 | disposition home or self-care (01) ==
LOC: ER 07:33
DX: E87.6 Hypokalemia (principal); M79.605 Pain in left leg; M79.604 Pain in right leg; I50.9 Heart failure, unspecified; Z88.0 Allergy status to penicillin; Z79.899 Other long term (current) drug therapy
CPT/HCPCS: 36415; 71045; 80053; 85025; 93005; 96365; 96366; 99285; J3480; J7060

== ENCOUNTER 2021-09-16 08:55 | Inpatient (IN) | payer MEDICAID ==
[~2021-09-16] VITALS: Ht 182.9 cm; Wt 122.2 kg
[~2021-09-16 08:55] MED LIST changes: +POTA-204 PO; -POTA20TA82 PO
[2021-09-16] MEDS ORDERED: SODIUM CHLORIDE 0.9% 1,000 ML IV ONE (09:15)
[2021-09-16 09:41] LABS: BASOPHILS % 0.7 % (0.0-2.0); EOSINOPHILS % 3.3 % (0.0-5.0); HEMATOCRIT. 43.7 % (42.0-52.0); HEMOGLOBIN. 15.8 g/dL (14.0-18.0); LYMPHOCYTES % 19.8 % (20.0-50.0); MEAN CORPUSCULAR HEMOGLOBIN 31.4 pg (28.0-32.0); MEAN CORPUSCULAR VOLUME 87.1 fL (80.0-94.0); MEAN PLATELET VOLUME 11.4 fl (7.4-10.4); MONOCYTES % 10.9 % (2.0-8.0); NEUTROPHILS % 65.3 % (40.0-76.0); PLATELET 195 x1000/uL (130-400); RED BLOOD CELL COUNT 5.02 mill/uL (4.7-6.1)
[2021-09-16 09:43] LABS: CHLORIDE 81 mEq/L (98-107)
[2021-09-16 09:53] LABS: BETA HYDROXYBUTYRATE 2.4 mMol/L (0.0-0.3)
[2021-09-16 10:00] LABS: BG BASE EXCESS 7.6 mmol/L (-2.0-2.0); BG CARBOXYHEMOGLOBIN 0.5 % (0.5-1.5); BG DEOXYHEMOGLOBIN 3.9 % (0.0-5.0); BG FRACTION INSPIRED OXYGEN 21; BG HCO3 ACT 30.7 mmol/L (22.0-26.0); BG OXYGEN SATURATION 96.1 % (92.0-98.5); BG OXYHEMOGLOBIN 95.6 % (94.0-97.0); BG PCO2 37.8 mmHg (35.0-45.0); BG PH 7.527 (7.350-7.450); BG PO2 78.7 mmHg (75.0-100.0); BG SAMPLE SITE LEFT BRACHIAL; BG TOTAL HEMOGLOBIN 16.4 g/dL (12.0-18.0); BG VENT MODE ROOM AIR
[2021-09-16] MEDS ORDERED: KCL 20MEQ/100ML PREMIX 100 ML IV ONE (10:30)
[2021-09-16] MEDS ORDERED: SODIUM CHLORIDE 0.9% 1000ML BAG (SEPSIS BOLUS) IV ONE (10:30)
[2021-09-16] MEDS ORDERED: MAGNESIUM 2 G PREMIX 50 ML IV ONE (10:30)
[2021-09-16] MEDS ORDERED: POTASSIUM CHLORIDE 20MEQ TABLET SR PO ONE (10:30)
[2021-09-16 11:58] LABS: CLARITY URINE CLEAR (CLEAR); COLOR URINE YELLOW (YELLOW); KETONES URINE 1+ (NEGATIVE); LEUKOCYTE ESTERASE URINE NEGATIVE (NEGATIVE); NITRITE URINE NEGATIVE (NEGATIVE); OCCULT BLOOD URINE NEGATIVE (NEGATIVE); PH URINE 6.5 (4.5-8.0); PROTEIN URINE NEGATIVE (NEGATIVE); SPECIFIC GRAVITY URINE 1.027 (1.005-1.030)
[2021-09-16 12:54] LABS: PHOSPHORUS 2.5 mg/dL (2.5-4.9)
[2021-09-16] MEDS ORDERED: DEXTROSE 50% WATER 50ML SYRINGE IV PRN (13:45)
[2021-09-16] MEDS ORDERED: INSULIN GLARGINE 100 UNITS/ML SUBCUT SCH (14:00)
[2021-09-16] MEDS: SODIUM CHLORIDE 0.9% 1,000 ML IV SCH (15:13)
[2021-09-16 15:40] VITALS: BP 114/72
[2021-09-16 16:00] VITALS: BP 117/74
[2021-09-16] MEDS: BLOOD SUGAR DIAGNOSTIC STRIP TEST SCH ×2 (17:33→21:00)
[2021-09-16] MEDS: INSULIN LISPRO 100 UNITS/ML SUBCUT SCH ×2 (18:23→21:20)
[2021-09-16 18:28] LABS: CHLORIDE 92 mEq/L (98-107)
[2021-09-16] MEDS ORDERED: INSULIN LISPRO 100 UNITS/ML SUBCUT NR (18:30)
[2021-09-16 18:33] LABS: PHOSPHORUS 2.2 mg/dL (2.5-4.9)
[2021-09-16 20:00] VITALS: BP 134/80
[2021-09-16] MEDS: POTASSIUM CHLORIDE 20MEQ TABLET SR PO NR ×2 (20:00→20:57)
[2021-09-16] MEDS: INSULIN GLARGINE 100 UNITS/ML SUBCUT SCH (21:20)
[2021-09-16 21:21] LABS: CHLORIDE 93 mEq/L (98-107)
[2021-09-16 21:26] LABS: PHOSPHORUS 1.3 mg/dL (2.5-4.9)
[2021-09-16] MEDS ORDERED: POTASSIUM CHLORIDE 20MEQ TABLET SR PO NR (23:00)
[2021-09-17] VITALS: BP 96/60
[2021-09-17] MEDS ORDERED: *PATIENT'S OWN MEDICATION STORAGE XX SCH (02:30)
[2021-09-17 03:58] VITALS: BP 121/76
[2021-09-17] MEDS: BLOOD SUGAR DIAGNOSTIC STRIP TEST SCH ×4 (07:44→21:00)
[2021-09-17 07:46] LABS: BASOPHILS % 1.3 % (0.0-2.0); EOSINOPHILS % 5.5 % (0.0-5.0); HEMATOCRIT. 39.9 % (42.0-52.0); HEMOGLOBIN. 14.1 g/dL (14.0-18.0); LYMPHOCYTES % 30.7 % (20.0-50.0); MEAN CORPUSCULAR HEMOGLOBIN 31.2 pg (28.0-32.0); MEAN CORPUSCULAR VOLUME 88.1 fL (80.0-94.0); NEUTROPHILS % 51.5 % (40.0-76.0); PLATELET 173 x1000/uL (130-400); RED BLOOD CELL COUNT 4.53 mill/uL (4.7-6.1); RED CELL DISTRIBUTION WIDTH 13.4 % (11.6-14.6)
[2021-09-17] MEDS: INSULIN LISPRO 100 UNITS/ML SUBCUT SCH ×4 (08:43→21:18)
[2021-09-17] MEDS: INSULIN GLARGINE 100 UNITS/ML SUBCUT SCH ×2 (10:21→21:17)
[2021-09-17] MEDS: SODIUM CHLORIDE 0.9% 1,000 ML IV SCH (10:22)
[2021-09-17 12:00] VITALS: BP 92/58
[2021-09-17 12:26] LABS: CHLORIDE 97 mEq/L (98-107)
[2021-09-17 16:00] VITALS: BP 114/82
[2021-09-17] MEDS ORDERED: POTASSIUM CHLORIDE INJ 40 MEQ in DEXT 5% WATER 250 ML IV ONE (17:30)
[2021-09-17 20:00] VITALS: BP 102/63
[2021-09-17] MEDS: KCL 20MEQ/100ML X 2 FOR TOTAL KCL 40MEQ/200ML IV SCH ×2 (20:34→22:07)
[2021-09-18] VITALS: BP 116/84
[2021-09-18 04:00] VITALS: BP 124/82
[2021-09-18] MEDS: SODIUM CHLORIDE 0.9% 1,000 ML IV SCH (06:22)
[2021-09-18] MEDS: BLOOD SUGAR DIAGNOSTIC STRIP TEST SCH ×2 (06:23→12:06)
[2021-09-18 07:55] VITALS: BP 108/72
[2021-09-18] MEDS: INSULIN LISPRO 100 UNITS/ML SUBCUT SCH ×2 (08:21→12:45)
[2021-09-18] MEDS ORDERED: SPIRONOLACTONE 25MG TABLET PO SCH (09:00)
[2021-09-18] MEDS ORDERED: POTASSIUM CHLORIDE 20MEQ TABLET SR PO SCH (09:00)
[2021-09-18] MEDS ORDERED: LOSARTAN POTASSIUM 25 MG TABLET PO SCH (09:00)
[2021-09-18] MEDS ORDERED: METOLAZONE 2.5MG TABLET PO SCH (09:00)
[2021-09-18] MEDS ORDERED: CARVEDILOL 3.125 MG TABLET PO SCH (09:00)
[2021-09-18] MEDS ORDERED: BUMETANIDE 1MG TABLET PO SCH (09:00)
[2021-09-18] MEDS: INSULIN GLARGINE 100 UNITS/ML SUBCUT SCH (10:05)
[2021-09-18 10:54] LABS: CHLORIDE 100 mEq/L (98-107)
[2021-09-18 12:00] VITALS: BP 104/74
[2021-09-18] MEDS ORDERED: POTASSIUM CHLORIDE 20MEQ/PACKET PO NR (13:00)
[2021-09-18 15:30] VITALS: BP 104/74
== END 2021-09-18 15:30 | disposition home or self-care (01) | DRG 420 ==
LOC: ER 08:55 → 7WST 12:37 → EDBEDREQTM 12:41 → EDBEDREQ 12:41 → EDBEDREQSVC 13:36 → ENRESERV 13:50
PROVIDERS: ADMIT Internal Medicine; ATTEND Internal Medicine
DX: E11.10 Type 2 diabetes mellitus with ketoacidosis without coma (principal); N17.0 Acute kidney failure with tubular necrosis; E11.65 Type 2 diabetes mellitus with hyperglycemia; E87.8 Other disorders of electrolyte and fluid balance, not elsewhere classified; I50.22 Chronic systolic (congestive) heart failure; I42.9 Cardiomyopathy, unspecified; E87.1 Hypo-osmolality and hyponatremia; E87.6 Hypokalemia; Z82.49 Family history of ischemic heart disease and other diseases of the circulatory system; Z79.4 Long term (current) use of insulin; Z88.0 Allergy status to penicillin
CPT/HCPCS: 36415; 36600; 71045; 80048; 80053; 81003; 82010; 82375; 82805; 82962; 83735; 84100; 85025; 93005; 93306; 99291; J1815; J3475; J3480; J7030

== ENCOUNTER 2022-02-07 20:50 | Inpatient (IN) | payer MEDICAID ==
[~2022-02-07] VITALS: Ht 182.9 cm; Wt 138.8 kg
[~2022-02-07 20:50] MED LIST changes: -METO5TAB7 PO
[2022-02-07 23:33] LABS: BASOPHILS % 1.1 % (0.0-2.0); EOSINOPHILS % 1.1 % (0.0-5.0); HEMATOCRIT. 48.6 % (42.0-52.0); HEMOGLOBIN. 15.9 g/dL (14.0-18.0); LYMPHOCYTES % 18.5 % (20.0-50.0); MEAN CORPUSCULAR HEMOGLOBIN 31.3 pg (28.0-32.0); MEAN CORPUSCULAR VOLUME 95.4 fL (80.0-94.0); MEAN PLATELET VOLUME 11.6 fl (7.4-10.4); MONOCYTES % 7.5 % (2.0-8.0); NEUTROPHILS % 71.8 % (40.0-76.0); PLATELET 146 x1000/uL (130-400); RED BLOOD CELL COUNT 5.09 mill/uL (4.7-6.1); RED CELL DISTRIBUTION WIDTH 14.8 % (11.6-14.6)
[2022-02-07 23:38] LABS: D-DIMER 0.59 mg/L FEU (<0.50); PROTHROMBIN TIME 10.8 sec (9.6-11.0)
[2022-02-07 23:47] LABS: CHLORIDE 94 mEq/L (98-107)
[2022-02-08] MEDS ORDERED: INSULIN REGULAR (HUMULIN R) 300UNITS/3ML VIAL IV NR ×2 (00:30→04:30)
[2022-02-08] MEDS ORDERED: IOHEXOL-350 100 ML BOTTLE ONE (05:51)
[2022-02-08] MEDS ORDERED: FUROSEMIDE 20MG/2ML VIAL IVP SCH (07:00)
[2022-02-08] MEDS ORDERED: ASPIRIN 325MG TABLET PO SCH (07:00)
[2022-02-08 10:00] VITALS: BP 121/85
[2022-02-08] MEDS ORDERED: ACETAMINOPHEN 325MG TABLET PO PRN (10:00)
[2022-02-08] MEDS ORDERED: CLONIDINE 0.1MG TABLET PO PRN (10:00)
[2022-02-08] MEDS ORDERED: IPRATROPIUM/ALBUTEROL 0.5-3(2.5)MG/3ML NEB HHN PRN (10:00)
[2022-02-08] MEDS ORDERED: ONDANSETRON HCL 4MG/2ML INJ IV PRN (10:00)
[2022-02-08] MEDS ORDERED: DIPHENHYDRAMINE 50MG/ML VIAL IV PRN (10:00)
[2022-02-08 11:30] VITALS: BP 121/85
[2022-02-08] MEDS: LOSARTAN POTASSIUM 25 MG TABLET PO SCH (11:58)
[2022-02-08 12:00] VITALS: BP 127/89
[2022-02-08] MEDS: SPIRONOLACTONE 25MG TABLET PO SCH (12:00)
[2022-02-08] MEDS: NITROGLYCERIN OINT 1GM/INCH UDPKT TD SCH ×3 (12:01→23:28)
[2022-02-08 16:00] VITALS: BP 107/63
[2022-02-08] MEDS: FUROSEMIDE 40MG/4ML VIAL IV SCH (17:23)
[2022-02-08 20:00] VITALS: BP 105/68
[2022-02-08] MEDS ORDERED: DEXTROSE 50% WATER 50ML SYRINGE IV PRN (20:45)
[2022-02-08] MEDS: BLOOD SUGAR DIAGNOSTIC STRIP TEST SCH (20:58)
[2022-02-08] MEDS: INSULIN LISPRO 100 UNITS/ML SUBCUT SCH (22:00)
[2022-02-08 23:53] LABS: *AMPHETAMINES SCREEN URINE NEGATIVE (NEGATIVE); *BARBITURATES SCREEN URINE NEGATIVE (NEGATIVE); *BENZODIAZEPINES SCREEN URINE NEGATIVE (NEGATIVE); *COCAINE SCREEN URINE NEGATIVE (NEGATIVE); CANNABINOID URINE SCREEN NEGATIVE (NEGATIVE); METHADONE URINE SCREEN NEGATIVE (NEGATIVE); OPIATES URINE SCREEN NEGATIVE (NEGATIVE); PHENCYCLIDINE URINE SCREEN NEGATIVE (NEGATIVE)
[2022-02-09] VITALS: BP 100/60
[2022-02-09 04:00] VITALS: BP 95/54
[2022-02-09] MEDS: NITROGLYCERIN OINT 1GM/INCH UDPKT TD SCH ×3 (06:00→17:16)
[2022-02-09] MEDS: INSULIN LISPRO 100 UNITS/ML SUBCUT SCH ×4 (06:50→22:02)
[2022-02-09] MEDS: FUROSEMIDE 40MG/4ML VIAL IV SCH ×2 (06:51→17:15)
[2022-02-09] MEDS: BLOOD SUGAR DIAGNOSTIC STRIP TEST SCH ×4 (07:03→21:51)
[2022-02-09 07:15] LABS: BASOPHILS % 1.1 % (0.0-2.0); EOSINOPHILS % 3.2 % (0.0-5.0); HEMATOCRIT. 41.7 % (42.0-52.0); LYMPHOCYTES % 15.7 % (20.0-50.0); MEAN CORPUSCULAR VOLUME 92.6 fL (80.0-94.0); MEAN PLATELET VOLUME 11.3 fl (7.4-10.4); MONOCYTES % 11.1 % (2.0-8.0); NEUTROPHILS % 68.9 % (40.0-76.0); PLATELET 132 x1000/uL (130-400); RED BLOOD CELL COUNT 4.51 mill/uL (4.7-6.1); RED CELL DISTRIBUTION WIDTH 14.9 % (11.6-14.6)
[2022-02-09 07:54] VITALS: BP 135/70
[2022-02-09] MEDS: LOSARTAN POTASSIUM 25 MG TABLET PO SCH (08:04)
[2022-02-09] MEDS: SPIRONOLACTONE 25MG TABLET PO SCH (08:07)
[2022-02-09 08:17] LABS: CHLORIDE 96 mEq/L (98-107)
[2022-02-09 12:00] VITALS: BP 107/66
[2022-02-09] MEDS ORDERED: MAGNESIUM 2 G PREMIX 50 ML IV NR (12:00)
[2022-02-09] MEDS ORDERED: POTASSIUM CHLORIDE 20MEQ TABLET SR PO NR (12:00)
[2022-02-09 15:00] VITALS: BP 95/65
[2022-02-09 20:00] VITALS: BP 95/65
[2022-02-10] VITALS: BP 126/66
[2022-02-10 04:00] VITALS: BP 125/66
[2022-02-10] MEDS: INSULIN LISPRO 100 UNITS/ML SUBCUT SCH ×4 (06:43→22:06)
[2022-02-10] MEDS: BLOOD SUGAR DIAGNOSTIC STRIP TEST SCH ×4 (06:43→21:47)
[2022-02-10 07:02] LABS: HEMATOCRIT. 41.1 % (42.0-52.0); MEAN CORPUSCULAR HEMOGLOBIN 30.9 pg (28.0-32.0); MEAN CORPUSCULAR VOLUME 90.7 fL (80.0-94.0); MEAN PLATELET VOLUME 11.2 fl (7.4-10.4); PLATELET 126 x1000/uL (130-400); RED BLOOD CELL COUNT 4.53 mill/uL (4.7-6.1); RED CELL DISTRIBUTION WIDTH 14.7 % (11.6-14.6)
[2022-02-10] MEDS: NITROGLYCERIN OINT 1GM/INCH UDPKT TD SCH ×4 (07:13→18:19)
[2022-02-10] MEDS: FUROSEMIDE 40MG/4ML VIAL IV SCH ×2 (07:13→18:18)
[2022-02-10 08:00] VITALS: BP 107/62
[2022-02-10] MEDS: LOSARTAN POTASSIUM 25 MG TABLET PO SCH (08:36)
[2022-02-10] MEDS: SPIRONOLACTONE 25MG TABLET PO SCH (08:36)
[2022-02-10 08:54] LABS: CHLORIDE 95 mEq/L (98-107)
[2022-02-10 12:00] VITALS: BP 118/75
[2022-02-10 13:52] LABS: PLATELET ESTIMATE NORMAL
[2022-02-10] MEDS ORDERED: POTASSIUM CHLORIDE 20MEQ TABLET SR PO NR (15:45)
[2022-02-10 16:00] VITALS: BP 118/76
[2022-02-10 20:00] VITALS: BP 96/52
[2022-02-11] VITALS: BP 100/61
[2022-02-11 04:00] VITALS: BP 93/74
[2022-02-11] MEDS: NITROGLYCERIN OINT 1GM/INCH UDPKT TD SCH ×4 (06:00→16:57)
[2022-02-11] MEDS: FUROSEMIDE 40MG/4ML VIAL IV SCH ×2 (06:45→16:49)
[2022-02-11] MEDS: BLOOD SUGAR DIAGNOSTIC STRIP TEST SCH ×4 (06:46→20:35)
[2022-02-11 08:00] VITALS: BP 116/77
[2022-02-11] MEDS: SPIRONOLACTONE 25MG TABLET PO SCH (08:40)
[2022-02-11] MEDS: LOSARTAN POTASSIUM 25 MG TABLET PO SCH (08:40)
[2022-02-11] MEDS: INSULIN LISPRO 100 UNITS/ML SUBCUT SCH ×5 (08:41→20:35)
[2022-02-11 12:00] VITALS: BP 135/62
[2022-02-11] MEDS ORDERED: POTASSIUM CHLORIDE 20MEQ/PACKET PO SCH (12:30)
[2022-02-11] MEDS: INSULIN GLARGINE 100 UNITS/ML SUBCUT SCH (13:55)
[2022-02-11] MEDS ORDERED: MAGNESIUM 2 G PREMIX 50 ML IV SCH (14:00)
[2022-02-11 15:50] VITALS: BP 99/69
[2022-02-11 20:00] VITALS: BP 98/52
[2022-02-11] MEDS ORDERED: MELATONIN 3MG TABLET PO SCH (21:00)
[2022-02-12] VITALS (7 sets, daily range): BP systolic 89–118; BP diastolic 48–76
[2022-02-12] MEDS: NITROGLYCERIN OINT 1GM/INCH UDPKT TD SCH ×4 (00:26→18:00)
[2022-02-12] MEDS: FUROSEMIDE 40MG/4ML VIAL IV SCH (06:27)
[2022-02-12] MEDS: BLOOD SUGAR DIAGNOSTIC STRIP TEST SCH ×4 (06:33→21:44)
[2022-02-12] MEDS: INSULIN LISPRO 100 UNITS/ML SUBCUT SCH ×7 (06:34→21:44)
[2022-02-12] MEDS: SPIRONOLACTONE 25MG TABLET PO SCH (08:45)
[2022-02-12] MEDS: LOSARTAN POTASSIUM 25 MG TABLET PO SCH ×2 (08:45→08:53)
[2022-02-12 08:46] LABS: CHLORIDE 97 mEq/L (98-107)
[2022-02-12 08:53] LABS: CREATINE KINASE 227 IU/L (39-308)
[2022-02-12] MEDS: INSULIN GLARGINE 100 UNITS/ML SUBCUT SCH (08:54)
[2022-02-12] MEDS: CARVEDILOL 3.125 MG TABLET PO SCH (21:00)
[2022-02-13] VITALS (7 sets, daily range): BP systolic 92–122; BP diastolic 52–83
[2022-02-13] MEDS: NITROGLYCERIN OINT 1GM/INCH UDPKT TD SCH ×5 (05:03→23:33)
[2022-02-13] MEDS: INSULIN LISPRO 100 UNITS/ML SUBCUT SCH ×7 (06:33→21:46)
[2022-02-13] MEDS: BLOOD SUGAR DIAGNOSTIC STRIP TEST SCH ×4 (06:33→19:47)
[2022-02-13 07:44] LABS: BASOPHILS % 0.6 % (0.0-2.0); EOSINOPHILS % 1.6 % (0.0-5.0); HEMATOCRIT. 43.3 % (42.0-52.0); HEMOGLOBIN. 14.4 g/dL (14.0-18.0); MEAN CORPUSCULAR VOLUME 92.9 fL (80.0-94.0); MEAN PLATELET VOLUME 12.6 fl (7.4-10.4); MONOCYTES % 12.4 % (2.0-8.0); NEUTROPHILS % 61.4 % (40.0-76.0); PLATELET 143 x1000/uL (130-400); RED BLOOD CELL COUNT 4.66 mill/uL (4.7-6.1); RED CELL DISTRIBUTION WIDTH 14.9 % (11.6-14.6)
[2022-02-13] MEDS: CARVEDILOL 3.125 MG TABLET PO SCH ×2 (08:50→21:40)
[2022-02-13] MEDS: LOSARTAN POTASSIUM 25 MG TABLET PO SCH (08:51)
[2022-02-13 08:54] LABS: CHLORIDE 94 mEq/L (98-107)
[2022-02-13] MEDS: INSULIN GLARGINE 100 UNITS/ML SUBCUT SCH (10:21)
[2022-02-13] MEDS: SPIRONOLACTONE 25MG TABLET PO SCH (10:23)
[2022-02-13] MEDS ORDERED: ALBUMIN HUMAN 12.5GM/50ML (25%) IV SCH (12:00)
[2022-02-14] VITALS (7 sets, daily range): BP systolic 79–137; BP diastolic 37–86
[2022-02-14] MEDS: BLOOD SUGAR DIAGNOSTIC STRIP TEST SCH ×4 (05:21→20:01)
[2022-02-14] MEDS: NITROGLYCERIN OINT 1GM/INCH UDPKT TD SCH ×3 (06:06→17:25)
[2022-02-14] MEDS: INSULIN LISPRO 100 UNITS/ML SUBCUT SCH ×7 (06:07→20:43)
[2022-02-14 06:50] LABS: BASOPHILS % 0.4 % (0.0-2.0); EOSINOPHILS % 0.2 % (0.0-5.0); HEMATOCRIT. 44.9 % (42.0-52.0); HEMOGLOBIN. 14.9 g/dL (14.0-18.0); MEAN CORPUSCULAR HEMOGLOBIN 30.9 pg (28.0-32.0); MEAN CORPUSCULAR VOLUME 92.8 fL (80.0-94.0); MEAN PLATELET VOLUME 11.8 fl (7.4-10.4); MONOCYTES % 7.7 % (2.0-8.0); NEUTROPHILS % 80.7 % (40.0-76.0); PLATELET 144 x1000/uL (130-400); RED BLOOD CELL COUNT 4.84 mill/uL (4.7-6.1)
[2022-02-14] MEDS: CARVEDILOL 3.125 MG TABLET PO SCH ×2 (07:54→20:32)
[2022-02-14] MEDS: SPIRONOLACTONE 25MG TABLET PO SCH (07:54)
[2022-02-14] MEDS: LOSARTAN POTASSIUM 25 MG TABLET PO SCH (07:55)
[2022-02-14] MEDS: INSULIN GLARGINE 100 UNITS/ML SUBCUT SCH (08:56)
[2022-02-14] MEDS ORDERED: MIDODRINE HCL 5MG TABLET PO NR (17:30)
[2022-02-15 03:51] VITALS: BP 85/59
[2022-02-15] MEDS: NITROGLYCERIN OINT 1GM/INCH UDPKT TD SCH ×4 (05:12→18:00)
[2022-02-15] MEDS: INSULIN LISPRO 100 UNITS/ML SUBCUT SCH ×4 (05:30→21:25)
[2022-02-15] MEDS: BLOOD SUGAR DIAGNOSTIC STRIP TEST SCH ×4 (05:30→21:33)
[2022-02-15 08:00] VITALS: BP 104/65
[2022-02-15] MEDS: SPIRONOLACTONE 25MG TABLET PO SCH (09:00)
[2022-02-15] MEDS: LOSARTAN POTASSIUM 25 MG TABLET PO SCH (09:00)
[2022-02-15] MEDS: CARVEDILOL 3.125 MG TABLET PO SCH ×2 (09:00→21:00)
[2022-02-15] MEDS: INSULIN GLARGINE 100 UNITS/ML SUBCUT SCH (10:00)
[2022-02-15 12:00] VITALS: BP 100/64
[2022-02-15] MEDS ORDERED: INSULIN GLARGINE 100 UNITS/ML SUBCUT NR (12:30)
[2022-02-15 16:00] VITALS: BP 107/72
[2022-02-15 20:00] VITALS: BP 99/70
[2022-02-16] VITALS: BP 98/62
[2022-02-16] MEDS: NITROGLYCERIN OINT 1GM/INCH UDPKT TD SCH
[2022-02-16 04:00] VITALS: BP 97/69
[2022-02-16 06:28] LABS: HEMATOCRIT. 46.9 % (42.0-52.0); HEMOGLOBIN. 15.4 g/dL (14.0-18.0); MEAN CORPUSCULAR VOLUME 94.1 fL (80.0-94.0); MEAN PLATELET VOLUME 11.6 fl (7.4-10.4); PLATELET 150 x1000/uL (130-400); RED BLOOD CELL COUNT 4.98 mill/uL (4.7-6.1); RED CELL DISTRIBUTION WIDTH 15.4 % (11.6-14.6)
[2022-02-16 08:00] VITALS: BP 105/88
[2022-02-16] MEDS: SPIRONOLACTONE 25MG TABLET PO SCH (09:00)
[2022-02-16] MEDS: LOSARTAN POTASSIUM 25 MG TABLET PO SCH (09:00)
[2022-02-16] MEDS: CARVEDILOL 3.125 MG TABLET PO SCH ×2 (09:00→21:00)
[2022-02-16] MEDS: INSULIN GLARGINE 100 UNITS/ML SUBCUT SCH (09:34)
[2022-02-16 12:00] VITALS: BP 104/69
[2022-02-16 12:05] LABS: PLATELET ESTIMATE NORMAL
[2022-02-16] MEDS: INSULIN LISPRO 100 UNITS/ML SUBCUT SCH ×4 (13:03→20:39)
[2022-02-16 16:00] VITALS: BP 109/76
[2022-02-16] MEDS: BLOOD SUGAR DIAGNOSTIC STRIP TEST SCH ×2 (17:10→21:00)
[2022-02-16 20:00] VITALS: BP 105/70
[2022-02-17] VITALS: BP 99/62
[2022-02-17 04:00] VITALS: BP 108/82
[2022-02-17] MEDS: INSULIN LISPRO 100 UNITS/ML SUBCUT SCH ×8 (05:36→20:22)
[2022-02-17] MEDS: BLOOD SUGAR DIAGNOSTIC STRIP TEST SCH ×4 (06:03→20:13)
[2022-02-17 08:00] VITALS: BP 110/82
[2022-02-17 08:35] LABS: CHLORIDE 98 mEq/L (98-107)
[2022-02-17] MEDS: SPIRONOLACTONE 25MG TABLET PO SCH (08:40)
[2022-02-17] MEDS: LOSARTAN POTASSIUM 25 MG TABLET PO SCH (08:40)
[2022-02-17] MEDS: CARVEDILOL 3.125 MG TABLET PO SCH ×2 (08:41→21:00)
[2022-02-17] MEDS: INSULIN GLARGINE 100 UNITS/ML SUBCUT SCH (10:05)
[2022-02-17 12:00] VITALS: BP 115/71
[2022-02-17] MEDS ORDERED: BUMETANIDE 1MG/4ML VIAL IV NR (14:00)
[2022-02-17 16:00] VITALS: BP 115/88
[2022-02-17] MEDS ORDERED: HYDROCODONE/ACETAMINOPHEN 5/325MG TABLET PO PRN (16:45)
[2022-02-17] MEDS ORDERED: BUMETANIDE 1MG TABLET PO NR (17:45)
[2022-02-17 20:00] VITALS: BP 91/52
[2022-02-18] VITALS: BP 99/64
[2022-02-18 04:00] VITALS: BP 97/50
[2022-02-18] MEDS: BLOOD SUGAR DIAGNOSTIC STRIP TEST SCH ×4 (05:24→20:51)
[2022-02-18] MEDS: INSULIN LISPRO 100 UNITS/ML SUBCUT SCH ×6 (05:24→20:52)
[2022-02-18 08:00] VITALS: BP 90/61
[2022-02-18] MEDS: LOSARTAN POTASSIUM 25 MG TABLET PO SCH (08:44)
[2022-02-18] MEDS: SPIRONOLACTONE 25MG TABLET PO SCH (08:44)
[2022-02-18] MEDS: CARVEDILOL 3.125 MG TABLET PO SCH (08:44)
[2022-02-18] MEDS: INSULIN GLARGINE 100 UNITS/ML SUBCUT SCH (10:40)
[2022-02-18] MEDS ORDERED: FUROSEMIDE 40MG/4ML VIAL IVP SCH (11:45)
[2022-02-18 12:00] VITALS: BP 105/54
[2022-02-18] MEDS ORDERED: NALOXONE HCL 0.4MG/ML VIAL IV PRN (12:00)
[2022-02-18 12:12] LABS: HEMATOCRIT. 41.2 % (42.0-52.0); HEMOGLOBIN. 13.6 g/dL (14.0-18.0); MEAN CORPUSCULAR HEMOGLOBIN 30.9 pg (28.0-32.0); MEAN CORPUSCULAR VOLUME 93.3 fL (80.0-94.0); PLATELET 146 x1000/uL (130-400); RED BLOOD CELL COUNT 4.41 mill/uL (4.7-6.1); RED CELL DISTRIBUTION WIDTH 15.3 % (11.6-14.6)
[2022-02-18] MEDS ORDERED: BUMETANIDE 1MG TABLET PO NR (13:15)
[2022-02-18 13:29] LABS: PLATELET ESTIMATE NORMAL
[2022-02-18] MEDS: FUROSEMIDE 40MG TABLET PO SCH (15:17)
[2022-02-18 16:00] VITALS: BP 129/84
[2022-02-18 20:00] VITALS: BP 97/57
[2022-02-18] MEDS: CARVEDILOL 6.25 MG TABLET PO SCH (20:55)
[2022-02-19] VITALS: BP 98/64
[2022-02-19 04:00] VITALS: BP 94/61
[2022-02-19] MEDS: INSULIN LISPRO 100 UNITS/ML SUBCUT SCH ×5 (06:59→21:46)
[2022-02-19] MEDS: BLOOD SUGAR DIAGNOSTIC STRIP TEST SCH ×4 (06:59→21:34)
[2022-02-19 08:00] VITALS: BP 105/60
[2022-02-19] MEDS: CARVEDILOL 6.25 MG TABLET PO SCH ×2 (09:00→21:00)
[2022-02-19] MEDS: FUROSEMIDE 40MG TABLET PO SCH (09:18)
[2022-02-19] MEDS: INSULIN GLARGINE 100 UNITS/ML SUBCUT SCH (09:24)
[2022-02-19 10:28] LABS: BASOPHILS % 0.4 % (0.0-2.0); HEMATOCRIT. 43.2 % (42.0-52.0); HEMOGLOBIN. 13.9 g/dL (14.0-18.0); LYMPHOCYTES % 10.1 % (20.0-50.0); MEAN CORPUSCULAR VOLUME 96.6 fL (80.0-94.0); MEAN PLATELET VOLUME 10.6 fl (7.4-10.4); MONOCYTES % 10.1 % (2.0-8.0); NEUTROPHILS % 78.4 % (40.0-76.0); PLATELET 136 x1000/uL (130-400); RED BLOOD CELL COUNT 4.48 mill/uL (4.7-6.1); RED CELL DISTRIBUTION WIDTH 15.7 % (11.6-14.6)
[2022-02-19 12:00] VITALS: BP 120/65
[2022-02-19] MEDS ORDERED: BUMETANIDE 1MG TABLET PO NR (12:45)
[2022-02-19 15:40] VITALS: BP 106/64
[2022-02-19 20:00] VITALS: BP 97/67
[2022-02-20] VITALS: BP 110/69
[2022-02-20 04:00] VITALS: BP 98/73
[2022-02-20] MEDS: BLOOD SUGAR DIAGNOSTIC STRIP TEST SCH ×2 (06:12→11:25)
[2022-02-20] MEDS: INSULIN LISPRO 100 UNITS/ML SUBCUT SCH ×2 (06:12→12:37)
[2022-02-20 08:00] VITALS: BP 107/77
[2022-02-20] MEDS: CARVEDILOL 6.25 MG TABLET PO SCH (09:00)
[2022-02-20] MEDS: FUROSEMIDE 40MG TABLET PO SCH (09:36)
[2022-02-20] MEDS: INSULIN GLARGINE 100 UNITS/ML SUBCUT SCH (09:44)
[2022-02-20] MEDS ORDERED: BUMETANIDE 1MG TABLET PO NR (11:00)
[2022-02-20] MEDS ORDERED: LANTUSUD SUBCUT (11:59)
[2022-02-20] MEDS ORDERED: BUME1TAB33 MT (11:59)
[2022-02-20] MEDS ORDERED: METF-414 PO (11:59)
[2022-02-20] MEDS ORDERED: POTA8CAP20 MT (11:59)
[2022-02-20] MEDS ORDERED: FURO-151 MT (11:59)
[2022-02-20] MEDS ORDERED: CARV3.1242 PO (11:59)
[2022-02-20 12:00] VITALS: BP 129/85
[2022-02-20 13:09] VITALS: BP 129/85
[2022-02-20] MEDS ORDERED: CARVEDILOL 6.25 MG TABLET PO SCH (21:00)
== END 2022-02-20 15:37 | disposition home or self-care (01) | DRG 194 ==
LOC: ER 20:50 → 8WST 02-08 05:09 → EDBEDREQ 02-08 05:11 → ENRESERV 02-08 06:56
PROVIDERS: ADMIT Internal Medicine; ATTEND Internal Medicine
DX: I11.0 Hypertensive heart disease with heart failure (principal); E44.1 Mild protein-calorie malnutrition; N17.9 Acute kidney failure, unspecified; I42.0 Dilated cardiomyopathy; I50.23 Acute on chronic systolic (congestive) heart failure; E11.65 Type 2 diabetes mellitus with hyperglycemia; E83.42 Hypomagnesemia; I25.10 Atherosclerotic heart disease of native coronary artery without angina pectoris; Z59.00 Homelessness unspecified; Z79.4 Long term (current) use of insulin; Z88.8 Allergy status to other drugs, medicaments and biological substances; Z88.0 Allergy status to penicillin; Z79.899 Other long term (current) drug therapy; Z82.49 Family history of ischemic heart disease and other diseases of the circulatory system; Z59.01 Sheltered homelessness; Z68.41 Body mass index [BMI] 40.0-44.9, adult
CPT/HCPCS: 36415; 71045; 71275; 80048; 80053; 80305; 82550; 82962; 83036; 83735; 83880; 84443; 84484; 85025; 85379; 93005; 93970; 99285; C1893; J1815; J1940; J3475; J3490; P9047; Q9967